=== PATIENT | male | born 1960 | race African-American/Black ===

== ENCOUNTER 2019-02-04 14:34 | Inpatient (IN) | payer OTHER ==
[~2019-02-04] VITALS: Ht 175.3 cm; Wt 122.0 kg
[~2019-02-04 14:34] MED LIST: LIDOCAINE HCL/PF 1% 2ML VIAL ONE
[2019-02-04] MEDS ORDERED: METHYLPREDNISOLONE SOD SUCC 125 MG/2 ML VIAL IV STA (16:11)
[2019-02-04] MEDS ORDERED: MAGNESIUM 2 G PREMIX 50 ML IV ONE (16:15)
[2019-02-04] MEDS ORDERED: LEVOFLOXACIN 750MG PREMIX 150 ML IV ONE (16:15)
[2019-02-04] MEDS ORDERED: IPRATROPIUM/ALBUTEROL 0.5-3(2.5)MG/3ML NEB HHN ONE (16:15)
[2019-02-04 16:30] LABS: BASOPHILS % 0.8 % (0.0-2.0); EOSINOPHILS % 1.3 % (0.0-5.0); HEMATOCRIT. 36.3 % (42.0-52.0); HEMOGLOBIN. 11.8 g/dL (14.0-18.0); MEAN CORPUSCULAR HEMOGLOBIN 29.1 pg (28.0-32.0); MEAN CORPUSCULAR VOLUME 89.2 fL (80.0-94.0); MEAN PLATELET VOLUME 7.2 fl (7.4-10.4); MONOCYTES % 10.5 % (2.0-8.0); NEUTROPHILS % 73.4 % (40.0-76.0); PLATELET 251 x1000/uL (130-400); RED BLOOD CELL COUNT 4.06 mill/uL (4.7-6.1); RED CELL DISTRIBUTION WIDTH 16.2 % (11.6-14.6)
[2019-02-04 16:36] LABS: CHLORIDE 100 mEq/L (98-107)
[2019-02-04 16:40] LABS: ETHANOL BLOOD < 10 mg/dL
[2019-02-04] MEDS ORDERED: FUROSEMIDE 40MG/4ML VIAL IVP ONE (16:45)
[2019-02-04] MEDS ORDERED: POTASSIUM CHLORIDE 20MEQ TABLET SR PO ONE (16:45)
[2019-02-04] MEDS ORDERED: ASPIRIN 81MG TABLET PO ONE (16:45)
[2019-02-04 16:46] LABS: CREATINE KINASE 204 IU/L (39-308)
[2019-02-04 16:48] LABS: CREATINE KINASE MB FRACTION 3.5 ng/mL (0.5-3.6)
[2019-02-04 16:52] LABS: BG BASE EXCESS 4.6 mmol/L (-2.0-2.0); BG CARBOXYHEMOGLOBIN 1.7 % (0.5-1.5); BG DEOXYHEMOGLOBIN 0.7 % (0.0-5.0); BG HCO3 ACT 32.3 mmol/L (22.0-26.0); BG METHEMOGLOBIN 0.3 % (0.0-1.5); BG OXYGEN SATURATION 99.3 % (92.0-98.5); BG OXYHEMOGLOBIN 97.3 % (94.0-97.0); BG PCO2 63.9 mmHg (35.0-45.0); BG PH 7.322 (7.350-7.450); BG SAMPLE SITE RIGHT RADIAL; BG TOTAL HEMOGLOBIN 12.4 g/dL (12.0-18.0)
[2019-02-04] MEDS ORDERED: ENOXAPARIN 100MG/ML SYR SUBCUT ONE (17:15)
[2019-02-04 17:46] LABS: CLARITY URINE CLEAR (CLEAR); COLOR URINE YELLOW (YELLOW); KETONES URINE NEGATIVE (NEGATIVE); LEUKOCYTE ESTERASE URINE NEGATIVE (NEGATIVE); NITRITE URINE NEGATIVE (NEGATIVE); OCCULT BLOOD URINE NEGATIVE (NEGATIVE); PH URINE 7.5 (4.5-8.0); PROTEIN URINE NEGATIVE (NEGATIVE); SPECIFIC GRAVITY URINE 1.004 (1.005-1.030); UROBILINOGEN URINE 0.2 E.U./dL (0.2-1.0)
[2019-02-04 18:18] LABS: INR 1.1; PARTIAL THROMBOPLASTIN TIME 29.5 sec (23.4-31.0); PROTHROMBIN TIME 10.8 sec (9.6-11.0)
[2019-02-04 18:30] LABS: *AMPHETAMINES SCREEN URINE NEGATIVE (NEGATIVE); *BARBITURATES SCREEN URINE NEGATIVE (NEGATIVE); *BENZODIAZEPINES SCREEN URINE NEGATIVE (NEGATIVE); *COCAINE SCREEN URINE NEGATIVE (NEGATIVE); METHADONE URINE SCREEN NEGATIVE (NEGATIVE); OPIATES URINE SCREEN NEGATIVE (NEGATIVE)
[2019-02-04 18:31] LABS: CANNABINOID URINE SCREEN NEGATIVE (NEGATIVE); PHENCYCLIDINE URINE SCREEN PRESUMTIVE POSITIVE (NEGATIVE)
[2019-02-04] MEDS ORDERED: IPRATROPIUM/ALBUTEROL 0.5-3(2.5)MG/3ML NEB NEB PRN (19:45)
[2019-02-04] MEDS ORDERED: HYDROCODONE/ACETAMINOPHEN 5/325MG TABLET PO PRN (19:45)
[2019-02-04] MEDS ORDERED: MORPHINE SULFATE 2 MG/ML CPJ (NOT FOR IM USE) IV PRN (19:45)
[2019-02-04] MEDS ORDERED: ENOXAPARIN 40MG/0.4ML SYR SUBCUT SCH (19:45)
[2019-02-04] MEDS ORDERED: ONDANSETRON HCL 4MG/2ML INJ IV PRN (19:45)
[2019-02-04] MEDS ORDERED: ACETAMINOPHEN 325MG TABLET PO PRN (19:45)
[2019-02-04] MEDS ORDERED: DIPHENHYDRAMINE 50MG/ML VIAL IV PRN (19:45)
[2019-02-04] MEDS ORDERED: NA PHOS,M-B/NA PHOS,DI-BA ENEMA 118ML PR PRN (19:45)
[2019-02-04] MEDS ORDERED: MAGNESIUM/ALUMINUM HYDROXIDE/SIMETHICONE 30ML UDC PO PRN (19:45)
[2019-02-04] MEDS ORDERED: GUAIFENESIN 200MG/10ML SUGAR FREE UDC PO PRN (19:45)
[2019-02-04] MEDS ORDERED: LORAZEPAM 2MG/ML CPJ IV PRN (19:45)
[2019-02-04] MEDS ORDERED: DOCUSATE SODIUM 100MG CAPSULE PO PRN (19:45)
[2019-02-04] MEDS: CLONIDINE 0.1MG TABLET PO PRN (20:31)
[2019-02-04] MEDS ORDERED: DEXTROSE 50% WATER 50ML SYRINGE IV PRN (23:30)
[2019-02-05] VITALS (11 sets, daily range): BP systolic 135–163; BP diastolic 84–110
[2019-02-05] MEDS: METHYLPREDNISOLONE SOD SUCC 125 MG/2 ML VIAL IV SCH ×3 (01:23→12:34)
[2019-02-05 06:24] LABS: HEMATOCRIT. 36.5 % (42.0-52.0); HEMOGLOBIN. 12.1 g/dL (14.0-18.0); MEAN CORPUSCULAR HEMOGLOBIN 29.2 pg (28.0-32.0); MEAN CORPUSCULAR VOLUME 88.3 fL (80.0-94.0); MEAN PLATELET VOLUME 7.1 fl (7.4-10.4); PLATELET 269 x1000/uL (130-400); RED BLOOD CELL COUNT 4.14 mill/uL (4.7-6.1); RED CELL DISTRIBUTION WIDTH 15.8 % (11.6-14.6)
[2019-02-05 06:25] LABS: CHLORIDE 105 mEq/L (98-107)
[2019-02-05 06:35] LABS: LDL CHOLESTEROL 82 mg/dL (5-100)
[2019-02-05 06:36] LABS: HDL CHOLESTEROL 46 mg/dL (40-59)
[2019-02-05] MEDS: BLOOD SUGAR DIAGNOSTIC STRIP TEST SCH ×5 (07:31→22:05)
[2019-02-05] MEDS: CLONIDINE 0.1MG TABLET PO PRN (08:48)
[2019-02-05] MEDS: ASPIRIN 81MG EC TABLET PO SCH (08:48)
[2019-02-05] MEDS: ENOXAPARIN 30MG/0.3ML SYR SUBCUT SCH ×2 (08:49→21:04)
[2019-02-05] MEDS: FUROSEMIDE 40MG/4ML VIAL IV SCH ×2 (08:49→21:06)
[2019-02-05] MEDS: INSULIN LISPRO 100 UNITS/ML SUBCUT SCH ×4 (08:50→22:05)
[2019-02-05 09:46] LABS: T4 FREE 0.91 ng/dL (0.76-1.46)
[2019-02-05 10:30] LABS: BG BASE EXCESS 6.5 mmol/L (-2.0-2.0); BG CARBOXYHEMOGLOBIN 1.3 % (0.5-1.5); BG DEOXYHEMOGLOBIN 10.4 % (0.0-5.0); BG FRACTION INSPIRED OXYGEN 32; BG HCO3 ACT 35.2 mmol/L (22.0-26.0); BG METHEMOGLOBIN 0.3 % (0.0-1.5); BG OXYGEN SATURATION 89.4 % (92.0-98.5); BG PCO2 70.9 mmHg (35.0-45.0); BG PH 7.314 (7.350-7.450); BG PO2 60.8 mmHg (75.0-100.0); BG SAMPLE SITE RIGHT RADIAL; BG TOTAL HEMOGLOBIN 13.6 g/dL (12.0-18.0); BG VENT MODE NASAL CANNULA
[2019-02-05] MEDS: LOSARTAN POTASSIUM 50 MG TABLET PO SCH (12:34)
[2019-02-05] MEDS: IPRATROPIUM/ALBUTEROL 0.5-3(2.5)MG/3ML NEB HHN SCH ×2 (14:35→21:28)
[2019-02-05 15:47] LABS: CREATINE KINASE MB FRACTION 2.2 ng/mL (0.5-3.6)
[2019-02-05] MEDS ORDERED: LEVOFLOXACIN 500MG PREMIX 100 ML IV SCH (17:00)
[2019-02-05] MEDS: METHYLPREDNISOLONE SOD SUCC 40 MG/ML VIAL IV SCH (17:13)
[2019-02-05 17:21] LABS: PLATELET ESTIMATE NORMAL
[2019-02-05] MEDS: CARVEDILOL 3.125 MG TABLET PO SCH (21:05)
[2019-02-06] VITALS: BP 152/94
[2019-02-06 01:09] LABS: CREATINE KINASE MB FRACTION 1.9 ng/mL (0.5-3.6)
[2019-02-06] MEDS: IPRATROPIUM/ALBUTEROL 0.5-3(2.5)MG/3ML NEB HHN SCH ×2 (03:00→08:52)
[2019-02-06 04:00] VITALS: BP 147/112
[2019-02-06 06:00] VITALS: BP 146/117
[2019-02-06 06:24] LABS: CREATINE KINASE MB FRACTION 2.6 ng/mL (0.5-3.6)
[2019-02-06] MEDS: ASPIRIN 81MG EC TABLET PO SCH (09:08)
[2019-02-06] MEDS: LOSARTAN POTASSIUM 50 MG TABLET PO SCH (09:08)
[2019-02-06] MEDS: METHYLPREDNISOLONE SOD SUCC 40 MG/ML VIAL IV SCH (09:08)
[2019-02-06] MEDS: ENOXAPARIN 30MG/0.3ML SYR SUBCUT SCH (09:08)
[2019-02-06] MEDS: FUROSEMIDE 40MG/4ML VIAL IV SCH (09:08)
[2019-02-06] MEDS: CARVEDILOL 3.125 MG TABLET PO SCH (09:08)
[2019-02-06] MEDS: INSULIN LISPRO 100 UNITS/ML SUBCUT SCH ×2 (09:09→12:43)
[2019-02-06 10:00] VITALS: BP 141/89
[2019-02-06 12:00] VITALS: BP 134/97
[2019-02-07] MEDS ORDERED: PREDNISONE 20MG TABLET PO SCH (09:00)
== END 2019-02-06 14:30 | disposition left against medical advice (07) | DRG 190 ==
LOC: ER 14:34 → 3WST 17:02 → EDBEDREQ 17:06 → EDBEDREQSVC 17:06 → EDBEDREQTM 17:06 → ENRESERV 21:05
PROVIDERS: ADMIT Internal Medicine; ATTEND Internal Medicine
PROC: 5A09357 Assistance with Respiratory Ventilation, Less than 24 Consecutive Hours, Continuous Positive Airway Pressure (ICD-10-PCS; principal; 2019-02-04)
PROC: 5A09357 Assistance with Respiratory Ventilation, Less than 24 Consecutive Hours, Continuous Positive Airway Pressure (ICD-10-PCS; 2019-02-05)
PROC: 5A09357 Assistance with Respiratory Ventilation, Less than 24 Consecutive Hours, Continuous Positive Airway Pressure (ICD-10-PCS; 2019-02-06)
DX: I21.4 Non-ST elevation (NSTEMI) myocardial infarction (principal); J96.02 Acute respiratory failure with hypercapnia; J69.0 Pneumonitis due to inhalation of food and vomit; I50.21 Acute systolic (congestive) heart failure; G92 Toxic encephalopathy; E87.2 Acidosis; I27.20 Pulmonary hypertension, unspecified; E66.9 Obesity, unspecified; E11.9 Type 2 diabetes mellitus without complications; E87.6 Hypokalemia; F17.210 Nicotine dependence, cigarettes, uncomplicated; I11.0 Hypertensive heart disease with heart failure; E78.5 Hyperlipidemia, unspecified; I25.10 Atherosclerotic heart disease of native coronary artery without angina pectoris; J44.9 Chronic obstructive pulmonary disease, unspecified; Z71.6 Tobacco abuse counseling; Z68.39 Body mass index [BMI] 39.0-39.9, adult; Z79.84 Long term (current) use of oral hypoglycemic drugs
CPT/HCPCS: 36415; 36600; 71045; 80061; 80305; 80320; 81003; 82375; 82550; 82553; 82805; 82962; 83036; 83605; 83880; 84439; 84443; 84484; 85379; 93005; 93306; 93970; 94640; 94660; 99285; J1200; J1650; J1815; J1940; J1956; J2920; J2930; J3475; J3490; J7620; G0480

== ENCOUNTER 2019-03-22 08:44 | Emergency (ER) | payer OTHER ==
[~2019-03-22] VITALS: Ht 175.3 cm; Wt 121.6 kg
[2019-03-22] MEDS ORDERED: VANCOMYCIN 1 G PREMIX 200 ML IV ONE (10:15)
[2019-03-22] MEDS ORDERED: MORPHINE SULFATE 4 MG/ML CPJ (NOT FOR IM USE) IV STA (10:15)
[2019-03-22] MEDS ORDERED: FUROSEMIDE 40MG/4ML VIAL IVP ONE (10:15)
[2019-03-22] MEDS ORDERED: PIPERACILLIN/TAZ 3.375G PREMIX 50 ML IV ONE (10:15)
[2019-03-22] MEDS ORDERED: ONDANSETRON HCL 4MG/2ML INJ IV STA (10:15)
[2019-03-22 10:47] LABS: BASOPHILS % 0.9 % (0.0-2.0); EOSINOPHILS % 0.4 % (0.0-5.0); HEMATOCRIT. 38.1 % (42.0-52.0); HEMOGLOBIN. 12.3 g/dL (14.0-18.0); LYMPHOCYTES % 12.8 % (20.0-50.0); MEAN CORPUSCULAR HEMOGLOBIN 28.3 pg (28.0-32.0); MEAN CORPUSCULAR VOLUME 87.7 fL (80.0-94.0); MEAN PLATELET VOLUME 8.2 fl (7.4-10.4); MONOCYTES % 7.8 % (2.0-8.0); NEUTROPHILS % 78.1 % (40.0-76.0); PLATELET 229 x1000/uL (130-400); RED BLOOD CELL COUNT 4.35 mill/uL (4.7-6.1); RED CELL DISTRIBUTION WIDTH 15.9 % (11.6-14.6)
[2019-03-22 10:53] LABS: CHLORIDE 103 mEq/L (98-107)
[2019-03-22 10:54] LABS: INR 1.1; PROTHROMBIN TIME 11.4 sec (9.6-11.0)
[2019-03-22 10:58] LABS: ETHANOL BLOOD < 10 mg/dL
[2019-03-22 11:02] LABS: CREATINE KINASE 162 IU/L (39-308)
[2019-03-22 11:15] LABS: CLARITY URINE CLEAR (CLEAR); COLOR URINE DARK YELLOW (YELLOW); KETONES URINE TRACE (NEGATIVE); LEUKOCYTE ESTERASE URINE NEGATIVE (NEGATIVE); NITRITE URINE NEGATIVE (NEGATIVE); OCCULT BLOOD URINE NEGATIVE (NEGATIVE); PROTEIN URINE 1+ (NEGATIVE); SPECIFIC GRAVITY URINE 1.025 (1.005-1.030)
[2019-03-22 11:37] LABS: METHADONE URINE SCREEN NEGATIVE (NEGATIVE); OPIATES URINE SCREEN NEGATIVE (NEGATIVE)
[2019-03-22 11:39] LABS: *AMPHETAMINES SCREEN URINE NEGATIVE (NEGATIVE); *BARBITURATES SCREEN URINE NEGATIVE (NEGATIVE); *BENZODIAZEPINES SCREEN URINE NEGATIVE (NEGATIVE); *COCAINE SCREEN URINE NEGATIVE (NEGATIVE); CANNABINOID URINE SCREEN NEGATIVE (NEGATIVE); PHENCYCLIDINE URINE SCREEN PRESUMTIVE POSITIVE (NEGATIVE)
[2019-03-22 15:10] VITALS: BP 160/120
== END 2019-03-22 15:30 | disposition short-term general hospital (02) ==
LOC: ER 08:44
DX: L03.115 Cellulitis of right lower limb (principal); R60.0 Localized edema; I11.0 Hypertensive heart disease with heart failure; I50.9 Heart failure, unspecified; R94.39 Abnormal result of other cardiovascular function study; E11.9 Type 2 diabetes mellitus without complications; J45.909 Unspecified asthma, uncomplicated; F16.10 Hallucinogen abuse, uncomplicated
CPT/HCPCS: 36415; 71045; 80053; 80305; 80320; 81003; 82550; 82553; 82962; 83605; 84145; 84443; 84484; 85025; 85610; 87040; 87086; 93005; 93970; 96365; 96366; 96367; 96375; 99285; J1940; J2270; J2405; J2543; J3370; Z7610; G0480

== ENCOUNTER 2019-08-08 14:06 | Inpatient (IN) | payer MEDICAID, OTHER ==
[~2019-08-08] VITALS: Ht 175.3 cm; Wt 120.2 kg
[2019-08-08] MEDS ORDERED: MORPHINE SULFATE 4 MG/ML CPJ (NOT FOR IM USE) IV STA (14:23)
[2019-08-08] MEDS ORDERED: ONDANSETRON HCL 4MG/2ML INJ IV STA (14:23)
[2019-08-08] MEDS ORDERED: FUROSEMIDE 40MG/4ML VIAL IV ONE (14:30)
[2019-08-08 15:14] LABS: BASOPHILS % 0.8 % (0.0-2.0); EOSINOPHILS % 1.5 % (0.0-5.0); HEMATOCRIT. 36.5 % (42.0-52.0); HEMOGLOBIN. 11.8 g/dL (14.0-18.0); LYMPHOCYTES % 16.1 % (20.0-50.0); MEAN CORPUSCULAR HEMOGLOBIN 27.1 pg (28.0-32.0); MEAN CORPUSCULAR VOLUME 83.7 fL (80.0-94.0); MEAN PLATELET VOLUME 7.2 fl (7.4-10.4); MONOCYTES % 11.1 % (2.0-8.0); NEUTROPHILS % 70.5 % (40.0-76.0); PLATELET 270 x1000/uL (130-400); RED BLOOD CELL COUNT 4.37 mill/uL (4.7-6.1); RED CELL DISTRIBUTION WIDTH 17.2 % (11.6-14.6)
[2019-08-08 15:17] LABS: CHLORIDE 102 mEq/L (98-107)
[2019-08-08 15:19] LABS: INR 1.2; PARTIAL THROMBOPLASTIN TIME 29.3 sec (23.4-31.0); PROTHROMBIN TIME 12.7 sec (9.6-11.0)
[2019-08-08 15:21] LABS: ETHANOL BLOOD < 10 mg/dL
[2019-08-08 17:34] LABS: CLARITY URINE CLEAR (CLEAR); COLOR URINE YELLOW (YELLOW); KETONES URINE NEGATIVE (NEGATIVE); LEUKOCYTE ESTERASE URINE NEGATIVE (NEGATIVE); NITRITE URINE NEGATIVE (NEGATIVE); OCCULT BLOOD URINE NEGATIVE (NEGATIVE); PROTEIN URINE NEGATIVE (NEGATIVE); SPECIFIC GRAVITY URINE 1.013 (1.005-1.030)
[2019-08-08 17:44] LABS: *AMPHETAMINES SCREEN URINE NEGATIVE (NEGATIVE); *BARBITURATES SCREEN URINE NEGATIVE (NEGATIVE); *BENZODIAZEPINES SCREEN URINE NEGATIVE (NEGATIVE); *COCAINE SCREEN URINE NEGATIVE (NEGATIVE); METHADONE URINE SCREEN NEGATIVE (NEGATIVE)
[2019-08-08 17:45] LABS: CANNABINOID URINE SCREEN NEGATIVE (NEGATIVE); OPIATES URINE SCREEN PRESUMTIVE POSITIVE (NEGATIVE); PHENCYCLIDINE URINE SCREEN PRESUMTIVE POSITIVE (NEGATIVE)
[2019-08-08] MEDS ORDERED: DEXTROSE 50% WATER 50ML SYRINGE IV PRN (20:45)
[2019-08-08] MEDS ORDERED: ONDANSETRON HCL 4MG/2ML INJ IV PRN (20:45)
[2019-08-08] MEDS ORDERED: HYDROCODONE/ACETAMINOPHEN 10/325MG TABLET PO PRN (20:45)
[2019-08-08] MEDS ORDERED: GUAIFENESIN 200MG/10ML SUGAR FREE UDC PO PRN (20:45)
[2019-08-08] MEDS ORDERED: LORAZEPAM 2MG/ML CPJ IV PRN (20:45)
[2019-08-08] MEDS ORDERED: DIPHENHYDRAMINE 50MG/ML VIAL IV PRN (20:45)
[2019-08-08] MEDS ORDERED: MAGNESIUM/ALUMINUM HYDROXIDE/SIMETHICONE 30ML UDC PO PRN (20:45)
[2019-08-08] MEDS ORDERED: IPRATROPIUM/ALBUTEROL 0.5-3(2.5)MG/3ML NEB NEB PRN (20:45)
[2019-08-08] MEDS ORDERED: ACETAMINOPHEN 325MG TABLET PO PRN (20:45)
[2019-08-08] MEDS ORDERED: NA PHOS,M-B/NA PHOS,DI-BA ENEMA 118ML PR PRN (20:45)
[2019-08-08] MEDS ORDERED: MORPHINE SULFATE 2 MG/ML CPJ (NOT FOR IM USE) IV PRN (20:45)
[2019-08-08] MEDS ORDERED: DOCUSATE SODIUM 100MG CAPSULE PO PRN (20:45)
[2019-08-08] MEDS ORDERED: HYDRALAZINE 20MG/ML VIAL IV PRN (20:45)
[2019-08-08] MEDS ORDERED: ENOXAPARIN 40MG/0.4ML SYR SUBCUT SCH (20:45)
[2019-08-08] MEDS: INSULIN LISPRO 100 UNITS/ML SUBCUT SCH (21:00)
[2019-08-08] MEDS: BLOOD SUGAR DIAGNOSTIC STRIP TEST SCH (21:00)
[2019-08-08 22:26] VITALS: BP 138/100
[2019-08-09] VITALS: BP 134/101
[2019-08-09 01:33] LABS: CREATINE KINASE MB FRACTION 2.9 ng/mL (0.5-3.6)
[2019-08-09 04:00] VITALS: BP 119/80
[2019-08-09] MEDS: SODIUM CHLORIDE 0.9% INJ 3ML FLUSH IVF SCH ×3 (06:05→20:56)
[2019-08-09 06:46] LABS: CHLORIDE 103 mEq/L (98-107)
[2019-08-09 07:00] LABS: EOSINOPHILS % 0.7 % (0.0-5.0); HEMATOCRIT. 33.8 % (42.0-52.0); HEMOGLOBIN. 11.1 g/dL (14.0-18.0); LYMPHOCYTES % 14.7 % (20.0-50.0); MEAN CORPUSCULAR HEMOGLOBIN 27.6 pg (28.0-32.0); MEAN PLATELET VOLUME 7.1 fl (7.4-10.4); MONOCYTES % 13.2 % (2.0-8.0); NEUTROPHILS % 70.4 % (40.0-76.0); PLATELET 250 x1000/uL (130-400); RED BLOOD CELL COUNT 4.03 mill/uL (4.7-6.1)
[2019-08-09 07:09] LABS: CREATINE KINASE 105 IU/L (39-308); HDL CHOLESTEROL 38 mg/dL (40-59); LDL CHOLESTEROL 51 mg/dL (5-100)
[2019-08-09 07:14] LABS: CREATINE KINASE MB FRACTION 3.1 ng/mL (0.5-3.6)
[2019-08-09] MEDS: BLOOD SUGAR DIAGNOSTIC STRIP TEST SCH ×4 (07:58→20:55)
[2019-08-09] MEDS: INSULIN LISPRO 100 UNITS/ML SUBCUT SCH ×4 (07:58→20:55)
[2019-08-09 08:00] VITALS: BP 129/85
[2019-08-09] MEDS: ENOXAPARIN 30MG/0.3ML SYR SUBCUT SCH ×2 (08:37→20:55)
[2019-08-09] MEDS: FUROSEMIDE 40MG/4ML VIAL IVP SCH (08:38)
[2019-08-09 12:00] VITALS: BP 130/79
[2019-08-09] MEDS ORDERED: FUROSEMIDE 40MG/4ML VIAL IVP NR (14:20)
[2019-08-09 15:45] LABS: T4 FREE 0.9 ng/dL (0.76-1.46)
[2019-08-09 15:47] LABS: CREATINE KINASE MB FRACTION 2.5 ng/mL (0.5-3.6)
[2019-08-09 16:00] VITALS: BP 135/90
[2019-08-09 20:13] VITALS: BP 109/67
[2019-08-10 00:10] LABS: CREATINE KINASE MB FRACTION 2.2 ng/mL (0.5-3.6)
[2019-08-10 00:36] VITALS: BP 123/85
[2019-08-10 04:00] VITALS: BP 119/88
[2019-08-10] MEDS: SODIUM CHLORIDE 0.9% INJ 3ML FLUSH IVF SCH ×3 (06:04→22:11)
[2019-08-10 06:09] LABS: BASOPHILS % 0.9 % (0.0-2.0); EOSINOPHILS % 0.5 % (0.0-5.0); HEMATOCRIT. 34.8 % (42.0-52.0); HEMOGLOBIN. 11.1 g/dL (14.0-18.0); LYMPHOCYTES % 12.2 % (20.0-50.0); MEAN CORPUSCULAR HEMOGLOBIN 27.4 pg (28.0-32.0); MEAN CORPUSCULAR VOLUME 85.8 fL (80.0-94.0); MEAN PLATELET VOLUME 7.1 fl (7.4-10.4); MONOCYTES % 11.4 % (2.0-8.0); PLATELET 240 x1000/uL (130-400); RED BLOOD CELL COUNT 4.05 mill/uL (4.7-6.1)
[2019-08-10 06:24] LABS: CHLORIDE 105 mEq/L (98-107)
[2019-08-10 06:42] LABS: CREATINE KINASE 79 IU/L (39-308)
[2019-08-10 06:43] LABS: CREATINE KINASE MB FRACTION 2.2 ng/mL (0.5-3.6)
[2019-08-10] MEDS: BLOOD SUGAR DIAGNOSTIC STRIP TEST SCH ×4 (07:40→21:00)
[2019-08-10 08:00] VITALS: BP 132/90
[2019-08-10] MEDS: INSULIN LISPRO 100 UNITS/ML SUBCUT SCH ×4 (08:10→21:00)
[2019-08-10] MEDS: FUROSEMIDE 40MG/4ML VIAL IVP SCH (09:40)
[2019-08-10] MEDS: ENOXAPARIN 30MG/0.3ML SYR SUBCUT SCH ×2 (09:41→22:09)
[2019-08-10] MEDS: LEVOFLOXACIN 500MG TABLET PO SCH (10:09)
[2019-08-10] MEDS ORDERED: IOHEXOL-350 100 ML BOTTLE ONE (10:44)
[2019-08-10 12:00] VITALS: BP 140/96
[2019-08-10] MEDS ORDERED: FUROSEMIDE 40MG/4ML VIAL IVP SCH (14:15)
[2019-08-10 16:00] VITALS: BP 150/98
[2019-08-10 20:00] VITALS: BP 151/71
[2019-08-10] MEDS: GUAIFENESIN 600MG ER TABLET PO SCH (22:09)
[2019-08-11] VITALS: BP 146/75
[2019-08-11 04:00] VITALS: BP 146/103
[2019-08-11] MEDS: SODIUM CHLORIDE 0.9% INJ 3ML FLUSH IVF SCH ×2 (06:29→17:43)
[2019-08-11] MEDS: INSULIN LISPRO 100 UNITS/ML SUBCUT SCH ×4 (08:10→21:00)
[2019-08-11] MEDS: BLOOD SUGAR DIAGNOSTIC STRIP TEST SCH ×4 (08:16→21:20)
[2019-08-11] MEDS: IPRATROPIUM/ALBUTEROL 0.5-3(2.5)MG/3ML NEB HHN SCH ×2 (09:00→12:00)
[2019-08-11] MEDS: ENOXAPARIN 30MG/0.3ML SYR SUBCUT SCH ×2 (09:12→20:55)
[2019-08-11] MEDS: GUAIFENESIN 600MG ER TABLET PO SCH ×2 (09:12→20:55)
[2019-08-11] MEDS: FUROSEMIDE 40MG/4ML VIAL IVP SCH (09:12)
[2019-08-11] MEDS: LEVOFLOXACIN 500MG TABLET PO SCH (11:16)
[2019-08-11 16:00] VITALS: BP 179/100
[2019-08-11 20:00] VITALS: BP 162/112
[2019-08-11] MEDS: CLONIDINE 0.1MG TABLET PO PRN (20:55)
[2019-08-12] VITALS: BP 150/104
[2019-08-12 04:00] VITALS: BP 159/104
[2019-08-12] MEDS: BLOOD SUGAR DIAGNOSTIC STRIP TEST SCH (05:54)
[2019-08-12] MEDS: INSULIN LISPRO 100 UNITS/ML SUBCUT SCH (07:46)
[2019-08-12 08:00] VITALS: BP 154/100
[2019-08-12] MEDS: CLONIDINE 0.1MG TABLET PO PRN (08:54)
[2019-08-12] MEDS: GUAIFENESIN 600MG ER TABLET PO SCH (08:54)
[2019-08-12] MEDS: FUROSEMIDE 40MG/4ML VIAL IVP SCH (08:54)
[2019-08-12] MEDS: ENOXAPARIN 30MG/0.3ML SYR SUBCUT SCH (08:55)
[2019-08-12 11:00] VITALS: BP 140/98
[2019-08-12 11:16] VITALS: BP 140/98
[2019-08-12 12:00] VITALS: BP 140/100
[2019-09-04] MEDS ORDERED: FURO40TA5 MT (12:16)
[2019-09-04] MEDS ORDERED: COR3 PO (12:16)
[2019-09-04] MEDS ORDERED: LOSA50TA3 PO (12:16)
[2019-09-04] MEDS ORDERED: METF500T PO (12:16)
[2019-09-04] MEDS ORDERED: POTA20TA82 PO (12:16)
[2019-09-04] MEDS ORDERED: HYDR-4134 PO (12:16)
[2019-09-04] MEDS ORDERED: AMLO5TAB88 PO (12:16)
[2019-09-04] MEDS ORDERED: FERR325T6 MT (12:55)
== END 2019-08-12 13:40 | disposition home or self-care (01) | DRG 139 ==
LOC: ER 14:06 → EDBEDREQTM 16:37 → EDBEDREQ 16:37 → 7WST 18:38 → EDBEDREQTM 18:42 → EDBEDREQ 18:42 → ENRESERV 20:02
PROVIDERS: ADMIT Internal Medicine; ATTEND Internal Medicine
DX: J18.9 Pneumonia, unspecified organism (principal); J96.20 Acute and chronic respiratory failure, unspecified whether with hypoxia or hypercapnia; I50.23 Acute on chronic systolic (congestive) heart failure; E46 Unspecified protein-calorie malnutrition; J91.8 Pleural effusion in other conditions classified elsewhere; I27.21 Secondary pulmonary arterial hypertension; D64.9 Anemia, unspecified; E11.9 Type 2 diabetes mellitus without complications; I11.0 Hypertensive heart disease with heart failure; R62.7 Adult failure to thrive; J98.11 Atelectasis; Z91.19 Patient's noncompliance with other medical treatment and regimen; Z87.891 Personal history of nicotine dependence; Z91.14 Patient's other noncompliance with medication regimen; Z68.39 Body mass index [BMI] 39.0-39.9, adult; Z79.899 Other long term (current) drug therapy
CPT/HCPCS: 36415; 71045; 71275; 80048; 80053; 80061; 80305; 80320; 81003; 82550; 82553; 82962; 83036; 83605; 83880; 84439; 84443; 84484; 85025; 85379; 93005; 93306; 93970; 96374; 99285; J0360; J1650; J1940; J2270; J2405; Q9967; G0480

== ENCOUNTER 2019-08-25 11:04 | Emergency (ER) | payer MEDICAID ==
[~2019-08-25] VITALS: Ht 175.3 cm; Wt 82.0 kg
[2019-08-25] MEDS ORDERED: POTASSIUM CHLORIDE 20MEQ TABLET SR PO ONE (11:45)
[2019-08-25] MEDS ORDERED: FUROSEMIDE 40MG TABLET PO ONE (11:45)
[2019-08-25 12:10] VITALS: BP 140/73
== END 2019-08-25 12:12 | disposition home or self-care (01) ==
LOC: ER 11:04
DX: I11.0 Hypertensive heart disease with heart failure (principal); I50.9 Heart failure, unspecified; E11.9 Type 2 diabetes mellitus without complications; F16.10 Hallucinogen abuse, uncomplicated
CPT/HCPCS: 99283

== ENCOUNTER 2019-10-12 10:27 | Inpatient (IN) | payer MEDICAID ==
[~2019-10-12] VITALS: Ht 177.8 cm; Wt 107.3 kg
[~2019-10-12 10:27] MED LIST changes: +AMLO5TAB88 PO; +COR3 PO; +FERR325T6 MT; +FURO40TA5 MT; +HYDR-4134 PO; -LIDOCAINE HCL/PF 1% 2ML VIAL ONE; +LOSA50TA3 PO; +METF500T PO; +POTA20TA82 PO
[2019-10-12] MEDS ORDERED: FUROSEMIDE 40MG/4ML VIAL IVP ONE (11:15)
[2019-10-12 11:28] LABS: CHLORIDE 107 mEq/L (98-107)
[2019-10-12 11:31] LABS: EOSINOPHILS % 0.8 % (0.0-5.0); HEMATOCRIT. 35.2 % (42.0-52.0); HEMOGLOBIN. 11.7 g/dL (14.0-18.0); LYMPHOCYTES % 14.4 % (20.0-50.0); MEAN CORPUSCULAR HEMOGLOBIN 27.6 pg (28.0-32.0); MEAN CORPUSCULAR VOLUME 83.2 fL (80.0-94.0); MEAN PLATELET VOLUME 7.8 fl (7.4-10.4); MONOCYTES % 10.6 % (2.0-8.0); NEUTROPHILS % 73.2 % (40.0-76.0); PLATELET 227 x1000/uL (130-400); RED BLOOD CELL COUNT 4.23 mill/uL (4.7-6.1); RED CELL DISTRIBUTION WIDTH 21.9 % (11.6-14.6)
[2019-10-12 11:32] LABS: ETHANOL BLOOD < 10 mg/dL
[2019-10-12 12:12] LABS: *COCAINE SCREEN URINE PRESUMTIVE POSITIVE (NEGATIVE); METHADONE URINE SCREEN NEGATIVE (NEGATIVE); OPIATES URINE SCREEN NEGATIVE (NEGATIVE); PHENCYCLIDINE URINE SCREEN PRESUMTIVE POSITIVE (NEGATIVE)
[2019-10-12 12:13] LABS: *AMPHETAMINES SCREEN URINE NEGATIVE (NEGATIVE); *BARBITURATES SCREEN URINE NEGATIVE (NEGATIVE); *BENZODIAZEPINES SCREEN URINE NEGATIVE (NEGATIVE); CANNABINOID URINE SCREEN NEGATIVE (NEGATIVE)
[2019-10-12] MEDS ORDERED: ASPIRIN 325MG EC TABLET PO ONE (12:30)
[2019-10-12] MEDS ORDERED: POTASSIUM CHLORIDE 20MEQ/PACKET PO ONE (14:00)
[2019-10-12] MEDS ORDERED: GUAIFENESIN 200MG/10ML SUGAR FREE UDC PO PRN (14:00)
[2019-10-12] MEDS ORDERED: KCL 20MEQ/100ML PREMIX 100 ML IV NR (14:00)
[2019-10-12] MEDS ORDERED: MAGNESIUM/ALUMINUM HYDROXIDE/SIMETHICONE 30ML UDC PO PRN (14:00)
[2019-10-12] MEDS ORDERED: KETOROLAC 15MG/ML VIAL IV PRN (14:00)
[2019-10-12] MEDS ORDERED: IPRATROPIUM/ALBUTEROL 0.5-3(2.5)MG/3ML NEB ORI PRN (14:00)
[2019-10-12] MEDS ORDERED: LORAZEPAM 0.5MG TABLET PO PRN (14:00)
[2019-10-12] MEDS ORDERED: ENOXAPARIN 40MG/0.4ML SYR SUBCUT SCH (14:00)
[2019-10-12] MEDS ORDERED: ACETAMINOPHEN 325MG TABLET PO PRN ×2 (14:00)
[2019-10-12] MEDS ORDERED: METOLAZONE 10MG TABLET PO NR (14:00)
[2019-10-12] MEDS ORDERED: ONDANSETRON HCL 4MG/2ML INJ IV PRN (14:00)
[2019-10-12] MEDS ORDERED: POTASSIUM CHLORIDE 20MEQ TABLET SR PO NR (14:00)
[2019-10-12] MEDS ORDERED: DEXTROSE 50% WATER 50ML SYRINGE IV PRN (14:15)
[2019-10-12 14:35] LABS: T4 FREE 0.95 ng/dL (0.76-1.46)
[2019-10-12 14:49] LABS: FOLIC ACID (FOLATE) SERUM 15.1 ng/mL (>5.38)
[2019-10-12] MEDS: ENOXAPARIN 30MG/0.3ML SYR SUBCUT SCH (16:33)
[2019-10-12] MEDS: BLOOD SUGAR DIAGNOSTIC STRIP TEST SCH ×2 (16:54→21:31)
[2019-10-12] MEDS: INSULIN LISPRO 100 UNITS/ML SUBCUT SCH ×2 (16:55→21:00)
[2019-10-12] MEDS: DILTIAZEM HCL 30MG TABLET PO SCH (17:01)
[2019-10-12] MEDS: CLONIDINE 0.1MG TABLET PO PRN (18:40)
[2019-10-12] MEDS: SPIRONOLACTONE 25MG TABLET PO SCH (21:00)
[2019-10-12] MEDS ORDERED: ZOLPIDEM TARTRATE 5MG TABLET PO PRN (21:00)
[2019-10-12] MEDS: ASCORBIC ACID 500 MG TABLET PO SCH (21:10)
[2019-10-12] MEDS: FUROSEMIDE 40MG/4ML VIAL IVP SCH (21:10)
[2019-10-12] MEDS: FAMOTIDINE 20MG TABLET PO SCH (21:10)
[2019-10-12 23:10] VITALS: BP 133/98
[2019-10-12 23:56] LABS: CREATINE KINASE MB FRACTION 2.5 ng/mL (0.5-3.6)
[2019-10-13] VITALS (12 sets, daily range): BP systolic 118–145; BP diastolic 86–106
[2019-10-13] MEDS: DILTIAZEM HCL 30MG TABLET PO SCH ×4 (00:03→17:06)
[2019-10-13] MEDS: CLONIDINE 0.1MG TABLET PO PRN ×2 (02:04→09:08)
[2019-10-13] MEDS: ENOXAPARIN 30MG/0.3ML SYR SUBCUT SCH ×2 (06:17→17:07)
[2019-10-13] MEDS: BLOOD SUGAR DIAGNOSTIC STRIP TEST SCH ×4 (07:06→21:11)
[2019-10-13] MEDS: INSULIN LISPRO 100 UNITS/ML SUBCUT SCH ×4 (07:20→21:10)
[2019-10-13 08:04] LABS: BASOPHILS % 0.8 % (0.0-2.0); EOSINOPHILS % 1.8 % (0.0-5.0); HEMATOCRIT. 35.5 % (42.0-52.0); HEMOGLOBIN. 11.6 g/dL (14.0-18.0); LYMPHOCYTES % 20.7 % (20.0-50.0); MEAN CORPUSCULAR HEMOGLOBIN 27.6 pg (28.0-32.0); MEAN PLATELET VOLUME 7.8 fl (7.4-10.4); MONOCYTES % 14.3 % (2.0-8.0); NEUTROPHILS % 62.4 % (40.0-76.0); PLATELET 221 x1000/uL (130-400); RED BLOOD CELL COUNT 4.22 mill/uL (4.7-6.1); RED CELL DISTRIBUTION WIDTH 22.2 % (11.6-14.6)
[2019-10-13 08:20] LABS: CHLORIDE 101 mEq/L (98-107)
[2019-10-13 08:26] LABS: PHOSPHORUS 5.1 mg/dL (2.5-4.9)
[2019-10-13] MEDS: ASPIRIN 325MG EC TABLET PO SCH (09:04)
[2019-10-13] MEDS: ZINC SULFATE 220 MG ( 50 ) CAPSULE PO SCH (09:04)
[2019-10-13] MEDS: FUROSEMIDE 40MG/4ML VIAL IVP SCH ×2 (09:05→21:11)
[2019-10-13] MEDS: SPIRONOLACTONE 25MG TABLET PO SCH ×2 (09:06→21:11)
[2019-10-13] MEDS: FAMOTIDINE 20MG TABLET PO SCH ×2 (09:37→21:11)
[2019-10-13] MEDS: ASCORBIC ACID 500 MG TABLET PO SCH ×2 (09:37→21:10)
[2019-10-13 13:23] LABS: PLATELET ESTIMATE NORMAL
[2019-10-14] VITALS (9 sets, daily range): BP systolic 114–140; BP diastolic 69–101
[2019-10-14] MEDS: ENOXAPARIN 30MG/0.3ML SYR SUBCUT SCH (05:53)
[2019-10-14] MEDS: DILTIAZEM HCL 30MG TABLET PO SCH ×2 (05:54)
[2019-10-14] MEDS: BLOOD SUGAR DIAGNOSTIC STRIP TEST SCH (06:45)
[2019-10-14] MEDS: INSULIN LISPRO 100 UNITS/ML SUBCUT SCH (07:20)
[2019-10-14] MEDS: ASPIRIN 325MG EC TABLET PO SCH (09:01)
[2019-10-14] MEDS: ZINC SULFATE 220 MG ( 50 ) CAPSULE PO SCH (09:01)
[2019-10-14] MEDS: FAMOTIDINE 20MG TABLET PO SCH (09:01)
[2019-10-14] MEDS: SPIRONOLACTONE 25MG TABLET PO SCH (09:01)
[2019-10-14] MEDS: FUROSEMIDE 40MG/4ML VIAL IVP SCH (09:01)
[2019-10-14] MEDS: ASCORBIC ACID 500 MG TABLET PO SCH (09:01)
== END 2019-10-14 13:59 | disposition home or self-care (01) | DRG 190 ==
LOC: ER 10:27 → 3WST 13:55 → EDBEDREQ 13:57 → ENRESERV 21:41
PROVIDERS: ADMIT Internal Medicine; ATTEND Internal Medicine
DX: I21.4 Non-ST elevation (NSTEMI) myocardial infarction (principal); J96.01 Acute respiratory failure with hypoxia; G92 Toxic encephalopathy; I50.43 Acute on chronic combined systolic (congestive) and diastolic (congestive) heart failure; E44.0 Moderate protein-calorie malnutrition; E83.51 Hypocalcemia; I42.9 Cardiomyopathy, unspecified; D63.8 Anemia in other chronic diseases classified elsewhere; E11.9 Type 2 diabetes mellitus without complications; I11.0 Hypertensive heart disease with heart failure; E87.6 Hypokalemia; F17.210 Nicotine dependence, cigarettes, uncomplicated; M79.89 Other specified soft tissue disorders; F14.10 Cocaine abuse, uncomplicated; F16.10 Hallucinogen abuse, uncomplicated; Z59.0 Homelessness; Z79.84 Long term (current) use of oral hypoglycemic drugs; Z79.899 Other long term (current) drug therapy; Z68.33 Body mass index [BMI] 33.0-33.9, adult
CPT/HCPCS: 36415; 71045; 80053; 80061; 80305; 80320; 82550; 82553; 82607; 82746; 82962; 83036; 83540; 83550; 83735; 83880; 84100; 84439; 84443; 84484; 85025; 93005; 93970; 96374; 97116; 97162; 97166; 99285; J1650; J1815; J1940; J3480; G0480

== ENCOUNTER 2019-11-02 13:20 | Emergency (ER) | payer MEDICAID ==
[~2019-11-02] VITALS: Ht 177.8 cm; Wt 80.0 kg
[2019-11-02] MEDS ORDERED: SULFAMETHOXAZOLE/TRIMETHOPRIM 800/160MG TABLET PO ONE (16:15)
[2019-11-02] MEDS ORDERED: CEPHALEXIN 250MG CAPSULE PO ONE (16:15)
[2019-11-02 17:02] VITALS: BP 146/96
== END 2019-11-02 17:03 | disposition home or self-care (01) ==
LOC: ER 13:20
DX: L03.115 Cellulitis of right lower limb (principal); E11.9 Type 2 diabetes mellitus without complications; I11.0 Hypertensive heart disease with heart failure; I50.9 Heart failure, unspecified; F14.10 Cocaine abuse, uncomplicated; F16.10 Hallucinogen abuse, uncomplicated; Z79.899 Other long term (current) drug therapy
CPT/HCPCS: 82962; 99283

== ENCOUNTER 2019-11-29 21:00 | Inpatient (IN) | payer MEDICAID ==
[~2019-11-29] VITALS: Ht 180.3 cm; Wt 70.8 kg
[2019-11-30 00:16] LABS: CLARITY URINE CLEAR (CLEAR); COLOR URINE DARK YELLOW (YELLOW); KETONES URINE TRACE (NEGATIVE); LEUKOCYTE ESTERASE URINE NEGATIVE (NEGATIVE); NITRITE URINE NEGATIVE (NEGATIVE); OCCULT BLOOD URINE NEGATIVE (NEGATIVE); PROTEIN URINE 1+ (NEGATIVE); SPECIFIC GRAVITY URINE 1.032 (1.005-1.030)
[2019-11-30 00:22] LABS: BASOPHILS % 1.5 % (0.0-2.0); EOSINOPHILS % 0.9 % (0.0-5.0); HEMATOCRIT. 37.1 % (42.0-52.0); HEMOGLOBIN. 12.3 g/dL (14.0-18.0); LYMPHOCYTES % 18.8 % (20.0-50.0); MEAN CORPUSCULAR HEMOGLOBIN 28.5 pg (28.0-32.0); MEAN CORPUSCULAR VOLUME 86.1 fL (80.0-94.0); MEAN PLATELET VOLUME 7.6 fl (7.4-10.4); MONOCYTES % 7.7 % (2.0-8.0); NEUTROPHILS % 71.1 % (40.0-76.0); PLATELET 232 x1000/uL (130-400); RED BLOOD CELL COUNT 4.31 mill/uL (4.7-6.1); RED CELL DISTRIBUTION WIDTH 21.3 % (11.6-14.6)
[2019-11-30 00:25] LABS: CHLORIDE 107 mEq/L (98-107)
[2019-11-30] MEDS ORDERED: IBUPROFEN 600MG TABLET PO ONE (00:30)
[2019-11-30 01:08] LABS: ETHANOL BLOOD < 10 mg/dL
[2019-11-30] MEDS ORDERED: ENOXAPARIN 100MG/ML SYR SUBCUT ONE (01:30)
[2019-11-30] MEDS ORDERED: NITROGLYCERIN 0.4MG TABLET SL SL PRN (01:30)
[2019-11-30] MEDS ORDERED: ASPIRIN 81MG TABLET PO ONE (01:30)
[2019-11-30] MEDS ORDERED: FUROSEMIDE 40MG/4ML VIAL IV ONE (01:30)
[2019-11-30 01:47] LABS: *AMPHETAMINES SCREEN URINE NEGATIVE (NEGATIVE); *BARBITURATES SCREEN URINE NEGATIVE (NEGATIVE); *BENZODIAZEPINES SCREEN URINE NEGATIVE (NEGATIVE); *COCAINE SCREEN URINE NEGATIVE (NEGATIVE); METHADONE URINE SCREEN NEGATIVE (NEGATIVE)
[2019-11-30 01:48] LABS: CANNABINOID URINE SCREEN NEGATIVE (NEGATIVE); OPIATES URINE SCREEN NEGATIVE (NEGATIVE); PHENCYCLIDINE URINE SCREEN PRESUMTIVE POSITIVE (NEGATIVE)
[2019-11-30] MEDS ORDERED: ACETAMINOPHEN 650MG SUPP PR PRN (09:15)
[2019-11-30] MEDS ORDERED: ACETAMINOPHEN 650MG/20.3ML UDC GT PRN ×2 (09:15)
[2019-11-30] MEDS ORDERED: DIPHENHYDRAMINE 50MG/ML VIAL IV PRN (09:15)
[2019-11-30] MEDS ORDERED: HYDROCODONE/ACETAMINOPHEN 5/325MG TABLET PO PRN (09:15)
[2019-11-30] MEDS ORDERED: DOCUSATE SODIUM 100MG CAPSULE PO PRN (09:15)
[2019-11-30] MEDS ORDERED: POTASSIUM CHLORIDE 20MEQ TABLET SR PO SCH (10:15)
[2019-11-30] MEDS: FUROSEMIDE 40MG/4ML VIAL IV SCH (10:21)
[2019-11-30] MEDS: CLONIDINE 0.1MG TABLET PO PRN ×2 (10:21→21:22)
[2019-11-30 11:54] LABS: T4 FREE 0.99 ng/dL (0.76-1.46)
[2019-11-30 13:00] VITALS: BP 134/85
[2019-11-30 16:00] VITALS: BP_SYST 134; BP_SYST 156; BP_DIAS 114; BP_DIAS 85
[2019-11-30] MEDS ORDERED: VANCOMYCIN 1500MG in DEXTROSE 5% WATER 250ML IV SCH (17:00)
[2019-11-30 17:04] LABS: CREATINE KINASE MB FRACTION 2.9 ng/mL (0.5-3.6)
[2019-11-30 20:00] VITALS: BP 152/113
[2019-11-30 23:52] LABS: CREATINE KINASE MB FRACTION 2.9 ng/mL (0.5-3.6)
[2019-12-01] VITALS: BP 158/118
[2019-12-01 04:00] VITALS: BP 150/111
[2019-12-01] MEDS ORDERED: VANCOMYCIN 1250MG in DEXTROSE 5% WATER 250ML IV SCH (06:00)
[2019-12-01 06:56] LABS: BASOPHILS % 0.7 % (0.0-2.0); EOSINOPHILS % 0.4 % (0.0-5.0); HEMATOCRIT. 36.2 % (42.0-52.0); HEMOGLOBIN. 11.9 g/dL (14.0-18.0); LYMPHOCYTES % 8.7 % (20.0-50.0); MEAN CORPUSCULAR HEMOGLOBIN 28.1 pg (28.0-32.0); MEAN CORPUSCULAR VOLUME 85.6 fL (80.0-94.0); MONOCYTES % 8.3 % (2.0-8.0); NEUTROPHILS % 81.9 % (40.0-76.0); PLATELET 221 x1000/uL (130-400); RED BLOOD CELL COUNT 4.23 mill/uL (4.7-6.1); RED CELL DISTRIBUTION WIDTH 21.1 % (11.6-14.6)
[2019-12-01 07:03] LABS: CHLORIDE 107 mEq/L (98-107)
[2019-12-01 07:11] LABS: LDL CHOLESTEROL 57 mg/dL (5-100)
[2019-12-01 07:13] LABS: HDL CHOLESTEROL 37 mg/dL (40-59)
[2019-12-01 08:00] VITALS: BP 158/122
[2019-12-01] MEDS ORDERED: ASPIRIN 81MG TABLET PO SCH (09:00)
[2019-12-01] MEDS ORDERED: ENOXAPARIN 40MG/0.4ML SYR SUBCUT SCH (09:00)
[2019-12-01] MEDS: FUROSEMIDE 40MG/4ML VIAL IV SCH (09:46)
[2019-12-01 16:16] LABS: CLARITY URINE CLEAR (CLEAR); COLOR URINE YELLOW (YELLOW); KETONES URINE NEGATIVE (NEGATIVE); LEUKOCYTE ESTERASE URINE NEGATIVE (NEGATIVE); NITRITE URINE NEGATIVE (NEGATIVE); OCCULT BLOOD URINE NEGATIVE (NEGATIVE); PROTEIN URINE NEGATIVE (NEGATIVE); SPECIFIC GRAVITY URINE 1.008 (1.005-1.030)
[2019-12-01 17:27] LABS: *BARBITURATES SCREEN URINE NEGATIVE (NEGATIVE)
[2019-12-01 17:28] LABS: *AMPHETAMINES SCREEN URINE NEGATIVE (NEGATIVE); *BENZODIAZEPINES SCREEN URINE NEGATIVE (NEGATIVE); *COCAINE SCREEN URINE NEGATIVE (NEGATIVE); CANNABINOID URINE SCREEN NEGATIVE (NEGATIVE); METHADONE URINE SCREEN NEGATIVE (NEGATIVE); OPIATES URINE SCREEN NEGATIVE (NEGATIVE); PHENCYCLIDINE URINE SCREEN PRESUMTIVE POSITIVE (NEGATIVE)
== END 2019-12-01 14:05 | disposition left against medical advice (07) | DRG 194 ==
LOC: ER 21:16 → 8WST 11-30 02:11 → ENRESERV 11-30 11:39
PROVIDERS: ADMIT Family Medicine; ATTEND Family Medicine
DX: I11.0 Hypertensive heart disease with heart failure (principal); E11.9 Type 2 diabetes mellitus without complications; D64.9 Anemia, unspecified; F19.90 Other psychoactive substance use, unspecified, uncomplicated; I50.9 Heart failure, unspecified; Z53.29 Procedure and treatment not carried out because of patient's decision for other reasons; Z79.84 Long term (current) use of oral hypoglycemic drugs; Z79.899 Other long term (current) drug therapy; Z91.19 Patient's noncompliance with other medical treatment and regimen; I25.2 Old myocardial infarction; Z59.0 Homelessness
CPT/HCPCS: 36415; 71045; 80053; 80061; 80305; 80320; 81003; 82550; 82553; 82962; 83036; 83880; 84439; 84443; 84484; 85025; 85379; 93005; 93306; 93970; 99285; J1650; J1940; J3370; J7060; G0480

== ENCOUNTER 2019-12-10 16:50 | Emergency (ER) | payer MEDICAID ==
[~2019-12-10] VITALS: Ht 170.2 cm; Wt 82.0 kg
[2019-12-10] MEDS ORDERED: DOXYCYCLINE HYCLATE 100MG CAPSULE PO ONE (21:15)
[2019-12-10 21:48] LABS: BASOPHILS % 0.9 % (0.0-2.0); EOSINOPHILS % 2.3 % (0.0-5.0); HEMATOCRIT. 33.5 % (42.0-52.0); HEMOGLOBIN. 11.1 g/dL (14.0-18.0); LYMPHOCYTES % 16.8 % (20.0-50.0); MEAN CORPUSCULAR HEMOGLOBIN 28.5 pg (28.0-32.0); MEAN CORPUSCULAR VOLUME 85.9 fL (80.0-94.0); MEAN PLATELET VOLUME 7.3 fl (7.4-10.4); MONOCYTES % 7.9 % (2.0-8.0); NEUTROPHILS % 72.1 % (40.0-76.0); PLATELET 212 x1000/uL (130-400); RED CELL DISTRIBUTION WIDTH 19.4 % (11.6-14.6)
[2019-12-10 21:55] LABS: CHLORIDE 106 mEq/L (98-107)
[2019-12-10] MEDS ORDERED: POTASSIUM CHLORIDE 20MEQ TABLET SR PO ONE (22:15)
[2019-12-11 10:59] VITALS: BP 132/78
== END 2019-12-11 11:01 | disposition home or self-care (01) ==
LOC: ER 16:50
DX: L03.115 Cellulitis of right lower limb (principal); E11.9 Type 2 diabetes mellitus without complications; I10 Essential (primary) hypertension
CPT/HCPCS: 36415; 71045; 80053; 83605; 85025; 87040; 93005; 99285; Z7610

== ENCOUNTER 2019-12-18 14:54 | Emergency (ER) | payer MEDICAID ==
[~2019-12-18] VITALS: Ht 172.7 cm; Wt 85.0 kg
[2019-12-18] MEDS ORDERED: ACETAMINOPHEN 325MG TABLET PO ONE (16:45)
[2019-12-18 17:32] LABS: BASOPHILS % 1.3 % (0.0-2.0); EOSINOPHILS % 1.7 % (0.0-5.0); HEMATOCRIT. 37.9 % (42.0-52.0); HEMOGLOBIN. 12.4 g/dL (14.0-18.0); LYMPHOCYTES % 22.4 % (20.0-50.0); MEAN CORPUSCULAR HEMOGLOBIN 28.3 pg (28.0-32.0); MEAN CORPUSCULAR VOLUME 86.5 fL (80.0-94.0); MEAN PLATELET VOLUME 7.5 fl (7.4-10.4); MONOCYTES % 10.5 % (2.0-8.0); NEUTROPHILS % 64.1 % (40.0-76.0); PLATELET 211 x1000/uL (130-400); RED BLOOD CELL COUNT 4.38 mill/uL (4.7-6.1)
[2019-12-18 17:38] LABS: CHLORIDE 105 mEq/L (98-107)
[2019-12-18] MEDS ORDERED: IBUPROFEN 400MG TABLET PO ONE (19:15)
[2019-12-18 21:00] VITALS: BP 158/99
== END 2019-12-18 22:24 | disposition home or self-care (01) ==
LOC: ER 14:54
DX: L03.116 Cellulitis of left lower limb (principal); L03.115 Cellulitis of right lower limb; I89.0 Lymphedema, not elsewhere classified; I11.0 Hypertensive heart disease with heart failure; I50.9 Heart failure, unspecified; E11.9 Type 2 diabetes mellitus without complications; F12.90 Cannabis use, unspecified, uncomplicated; Z72.0 Tobacco use; Z79.899 Other long term (current) drug therapy
CPT/HCPCS: 36415; 80053; 85025; 99285

== ENCOUNTER 2019-12-25 07:09 | Inpatient (IN) | payer MEDICAID ==
[~2019-12-25] VITALS: Ht 170.2 cm; Wt 111.1 kg
[2019-12-25 08:38] LABS: EOSINOPHILS % 3.9 % (0.0-5.0); HEMATOCRIT. 34.8 % (42.0-52.0); HEMOGLOBIN. 11.2 g/dL (14.0-18.0); LYMPHOCYTES % 16.8 % (20.0-50.0); MEAN CORPUSCULAR HEMOGLOBIN 28.4 pg (28.0-32.0); MEAN PLATELET VOLUME 7.2 fl (7.4-10.4); MONOCYTES % 10.9 % (2.0-8.0); NEUTROPHILS % 67.4 % (40.0-76.0); PLATELET 214 x1000/uL (130-400); RED BLOOD CELL COUNT 3.95 mill/uL (4.7-6.1); RED CELL DISTRIBUTION WIDTH 18.8 % (11.6-14.6)
[2019-12-25 08:44] LABS: CHLORIDE 109 mEq/L (98-107)
[2019-12-25] MEDS ORDERED: MORPHINE SULFATE 4 MG/ML CPJ (NOT FOR IM USE) IV ONE (09:30)
[2019-12-25] MEDS ORDERED: ASPIRIN 325MG EC TABLET PO ONE (09:30)
[2019-12-25] MEDS ORDERED: HYDRALAZINE 20MG/ML VIAL IV ONE (10:45)
[2019-12-25] MEDS ORDERED: FUROSEMIDE 40MG/4ML VIAL IVP ONE (10:45)
[2019-12-25] MEDS ORDERED: ENALAPRIL 2.5MG/2ML VIAL 2ML IV ONE (10:45)
[2019-12-25] MEDS ORDERED: ENALAPRIL 1.25MG/ML VIAL 1ML IV NR (11:00)
[2019-12-25] MEDS ORDERED: ONDANSETRON HCL 4MG/2ML INJ IV PRN (12:45)
[2019-12-25 13:01] VITALS: BP 139/116
[2019-12-25] MEDS: LOSARTAN POTASSIUM 100 MG TABLET PO SCH (13:30)
[2019-12-25] MEDS: ENOXAPARIN 30MG/0.3ML SYR SUBCUT SCH ×2 (13:31→20:38)
[2019-12-25] MEDS: KETOROLAC 30MG/ML VIAL IV PRN ×2 (13:31→20:38)
[2019-12-25 16:18] VITALS: BP 147/105
[2019-12-25 16:40] LABS: CLARITY URINE CLEAR (CLEAR); COLOR URINE YELLOW (YELLOW); KETONES URINE NEGATIVE (NEGATIVE); LEUKOCYTE ESTERASE URINE NEGATIVE (NEGATIVE); NITRITE URINE NEGATIVE (NEGATIVE); OCCULT BLOOD URINE NEGATIVE (NEGATIVE); PH URINE 7.5 (4.5-8.0); PROTEIN URINE NEGATIVE (NEGATIVE)
[2019-12-25 16:53] LABS: *BENZODIAZEPINES SCREEN URINE NEGATIVE (NEGATIVE); *COCAINE SCREEN URINE NEGATIVE (NEGATIVE); METHADONE URINE SCREEN NEGATIVE (NEGATIVE); OPIATES URINE SCREEN PRESUMTIVE POSITIVE (NEGATIVE); PHENCYCLIDINE URINE SCREEN PRESUMTIVE POSITIVE (NEGATIVE)
[2019-12-25 16:54] LABS: *AMPHETAMINES SCREEN URINE NEGATIVE (NEGATIVE); *BARBITURATES SCREEN URINE NEGATIVE (NEGATIVE); CANNABINOID URINE SCREEN NEGATIVE (NEGATIVE)
[2019-12-25] MEDS: FUROSEMIDE 40MG/4ML VIAL IVP SCH (17:22)
[2019-12-25 20:00] VITALS: BP 141/110
[2019-12-25] MEDS: CARVEDILOL 12.5MG TABLET PO SCH (20:38)
[2019-12-26 00:11] VITALS: BP 115/82
[2019-12-26 04:00] VITALS: BP 111/83
[2019-12-26] MEDS: TRAMADOL 50MG TABLET PO PRN ×2 (05:02→19:58)
[2019-12-26 08:00] VITALS: BP 105/79
[2019-12-26 08:45] LABS: CHLORIDE 102 mEq/L (98-107)
[2019-12-26 09:15] LABS: BASOPHILS % 0.6 % (0.0-2.0); EOSINOPHILS % 4.2 % (0.0-5.0); HEMATOCRIT. 34.2 % (42.0-52.0); HEMOGLOBIN. 11.2 g/dL (14.0-18.0); MEAN CORPUSCULAR HEMOGLOBIN 28.6 pg (28.0-32.0); MEAN CORPUSCULAR VOLUME 87.5 fL (80.0-94.0); MEAN PLATELET VOLUME 7.5 fl (7.4-10.4); MONOCYTES % 6.8 % (2.0-8.0); NEUTROPHILS % 69.4 % (40.0-76.0); PLATELET 217 x1000/uL (130-400); RED CELL DISTRIBUTION WIDTH 18.2 % (11.6-14.6)
[2019-12-26] MEDS: LOSARTAN POTASSIUM 100 MG TABLET PO SCH (09:55)
[2019-12-26] MEDS: ASPIRIN 81MG TABLET PO SCH (09:56)
[2019-12-26] MEDS: FUROSEMIDE 40MG/4ML VIAL IVP SCH ×2 (09:56→17:15)
[2019-12-26] MEDS: CARVEDILOL 12.5MG TABLET PO SCH ×2 (09:56→19:57)
[2019-12-26] MEDS: ENOXAPARIN 30MG/0.3ML SYR SUBCUT SCH ×2 (09:57→19:58)
[2019-12-26 12:00] VITALS: BP 106/78
[2019-12-26 16:00] VITALS: BP 110/80
[2019-12-26 20:00] VITALS: BP 126/98
[2019-12-27] VITALS: BP 101/70
[2019-12-27 04:30] VITALS: BP 99/73
[2019-12-27] MEDS: FUROSEMIDE 40MG/4ML VIAL IVP SCH ×2 (06:24→16:55)
[2019-12-27 08:00] VITALS: BP 117/88
[2019-12-27] MEDS: ENOXAPARIN 30MG/0.3ML SYR SUBCUT SCH ×2 (09:08→20:20)
[2019-12-27] MEDS: ASPIRIN 81MG TABLET PO SCH (09:09)
[2019-12-27] MEDS: CARVEDILOL 12.5MG TABLET PO SCH ×2 (09:10→20:20)
[2019-12-27] MEDS: TRAMADOL 50MG TABLET PO PRN ×2 (09:10→13:29)
[2019-12-27] MEDS: LOSARTAN POTASSIUM 100 MG TABLET PO SCH (09:10)
[2019-12-27 12:00] VITALS: BP 90/60
[2019-12-27 16:00] VITALS: BP 113/73
[2019-12-27 20:20] VITALS: BP 113/84
[2019-12-28 00:24] VITALS: BP 93/69
[2019-12-28 04:47] VITALS: BP 99/62
[2019-12-28] MEDS: FUROSEMIDE 40MG/4ML VIAL IVP SCH ×2 (06:24→16:34)
[2019-12-28 08:00] VITALS: BP 112/81
[2019-12-28] MEDS: LOSARTAN POTASSIUM 100 MG TABLET PO SCH (10:08)
[2019-12-28] MEDS: TRAMADOL 50MG TABLET PO PRN (10:08)
[2019-12-28] MEDS: CARVEDILOL 12.5MG TABLET PO SCH ×2 (10:08→20:58)
[2019-12-28] MEDS: ASPIRIN 81MG TABLET PO SCH (10:08)
[2019-12-28] MEDS: ENOXAPARIN 30MG/0.3ML SYR SUBCUT SCH ×2 (10:08→20:57)
[2019-12-28 16:00] VITALS: BP 116/63
[2019-12-28] MEDS ORDERED: CARV12.545 MT (17:59)
[2019-12-28] MEDS ORDERED: ASPI-1160 PO (17:59)
[2019-12-28] MEDS ORDERED: FERR325T6 MT (17:59)
[2019-12-28] MEDS ORDERED: METF500T PO (17:59)
[2019-12-28] MEDS ORDERED: LOSA50TA3 PO (17:59)
[2019-12-28] MEDS ORDERED: DOCU250C14 MT (17:59)
[2019-12-28] MEDS ORDERED: FURO40TA5 MT (17:59)
[2019-12-28] MEDS ORDERED: POTA20TA82 MT (17:59)
[2019-12-28 20:50] VITALS: BP 96/58
[2019-12-29 00:20] VITALS: BP 98/53
[2019-12-29 04:35] VITALS: BP 123/93
[2019-12-29 08:00] VITALS: BP 122/91
[2019-12-29 08:02] VITALS: BP 123/93
[2019-12-29] MEDS: ASPIRIN 81MG TABLET PO SCH (09:10)
[2019-12-29] MEDS: ENOXAPARIN 30MG/0.3ML SYR SUBCUT SCH (09:10)
[2019-12-29] MEDS: LOSARTAN POTASSIUM 100 MG TABLET PO SCH (09:10)
[2019-12-29] MEDS: CARVEDILOL 12.5MG TABLET PO SCH (09:10)
[2019-12-29] MEDS: FUROSEMIDE 40MG/4ML VIAL IVP SCH (09:10)
[2019-12-29 09:57] VITALS: BP 123/93
== END 2019-12-29 10:19 | disposition home or self-care (01) | DRG 194 ==
LOC: ER 07:30 → 6WST 10:45 → ENRESERV 11:33 → ER 12:06 → CANBEDREQ 12-27 14:53
PROVIDERS: ADMIT Internal Medicine Nephrology; ATTEND Internal Medicine Nephrology
DX: I11.0 Hypertensive heart disease with heart failure (principal); I50.23 Acute on chronic systolic (congestive) heart failure; E11.51 Type 2 diabetes mellitus with diabetic peripheral angiopathy without gangrene; I42.9 Cardiomyopathy, unspecified; D64.9 Anemia, unspecified; E66.9 Obesity, unspecified; E87.0 Hyperosmolality and hypernatremia; E87.8 Other disorders of electrolyte and fluid balance, not elsewhere classified; F17.210 Nicotine dependence, cigarettes, uncomplicated; I87.8 Other specified disorders of veins; F12.90 Cannabis use, unspecified, uncomplicated; L03.90 Cellulitis, unspecified; E78.5 Hyperlipidemia, unspecified; I45.10 Unspecified right bundle-branch block; Z71.3 Dietary counseling and surveillance; Z59.0 Homelessness; Z91.14 Patient's other noncompliance with medication regimen; Z71.6 Tobacco abuse counseling; Z68.38 Body mass index [BMI] 38.0-38.9, adult; Z79.899 Other long term (current) drug therapy
CPT/HCPCS: 36415; 71045; 80048; 80053; 80305; 81003; 83880; 84484; 85025; 93005; 93923; 99291; J1650; J1885; J1940; J2270; J3490

== ENCOUNTER 2020-01-16 17:57 | Inpatient (IN) | payer MEDICAID ==
[~2020-01-16] VITALS: Ht 180.3 cm; Wt 109.8 kg
[~2020-01-16 17:57] MED LIST changes: -AMLO5TAB88 PO; +ASPI-1160 PO; +CARV12.545 MT; -COR3 PO; +DOCU250C14 MT; -HYDR-4134 PO; +POTA20TA82 MT; -POTA20TA82 PO
[2020-01-16] MEDS ORDERED: ACETAMINOPHEN 325MG TABLET PO STA (19:29)
[2020-01-16] MEDS ORDERED: FUROSEMIDE 40MG/4ML VIAL IV ONE (19:30)
[2020-01-16 20:27] LABS: EOSINOPHILS % 2.8 % (0.0-5.0); HEMATOCRIT. 32.7 % (42.0-52.0); HEMOGLOBIN. 10.9 g/dL (14.0-18.0); LYMPHOCYTES % 16.9 % (20.0-50.0); MEAN CORPUSCULAR HEMOGLOBIN 28.5 pg (28.0-32.0); MEAN CORPUSCULAR VOLUME 85.6 fL (80.0-94.0); MEAN PLATELET VOLUME 7.4 fl (7.4-10.4); MONOCYTES % 12.3 % (2.0-8.0); PLATELET 250 x1000/uL (130-400); RED BLOOD CELL COUNT 3.82 mill/uL (4.7-6.1); RED CELL DISTRIBUTION WIDTH 17.2 % (11.6-14.6)
[2020-01-16 20:32] LABS: CHLORIDE 102 mEq/L (98-107)
[2020-01-16] MEDS ORDERED: ASPIRIN 81MG TABLET PO ONE (21:00)
[2020-01-16] MEDS ORDERED: ENOXAPARIN 100MG/ML SYR SUBCUT ONE (21:00)
[2020-01-16 21:34] LABS: *AMPHETAMINES SCREEN URINE NEGATIVE (NEGATIVE); *BARBITURATES SCREEN URINE NEGATIVE (NEGATIVE); *BENZODIAZEPINES SCREEN URINE NEGATIVE (NEGATIVE)
[2020-01-16 21:35] LABS: *COCAINE SCREEN URINE NEGATIVE (NEGATIVE); CANNABINOID URINE SCREEN NEGATIVE (NEGATIVE); METHADONE URINE SCREEN NEGATIVE (NEGATIVE); OPIATES URINE SCREEN NEGATIVE (NEGATIVE); PHENCYCLIDINE URINE SCREEN PRESUMTIVE POSITIVE (NEGATIVE)
[2020-01-16] MEDS ORDERED: ENOXAPARIN 40MG/0.4ML SYR SUBCUT SCH (21:45)
[2020-01-16] MEDS ORDERED: DEXTROSE 50% WATER 50ML SYRINGE IV PRN (21:45)
[2020-01-16] MEDS ORDERED: ONDANSETRON HCL 4MG/2ML INJ IV PRN (21:45)
[2020-01-16] MEDS ORDERED: CLONIDINE 0.1MG TABLET PO PRN (21:45)
[2020-01-16] MEDS ORDERED: GUAIFENESIN 200MG/10ML SUGAR FREE UDC PO PRN (21:45)
[2020-01-16] MEDS ORDERED: ZOLPIDEM TARTRATE 5MG TABLET PO PRN (21:45)
[2020-01-16] MEDS ORDERED: LORAZEPAM 0.5MG TABLET PO PRN (21:45)
[2020-01-16] MEDS ORDERED: DIPHENHYDRAMINE 50MG/ML VIAL IV PRN (21:45)
[2020-01-16] MEDS ORDERED: ACETAMINOPHEN 325MG TABLET PO PRN (21:45)
[2020-01-16] MEDS ORDERED: MAGNESIUM/ALUMINUM HYDROXIDE/SIMETHICONE 30ML UDC PO PRN (21:45)
[2020-01-16] MEDS ORDERED: IPRATROPIUM/ALBUTEROL 0.5-3(2.5)MG/3ML NEB HHN PRN (21:45)
[2020-01-17] VITALS (7 sets, daily range): BP systolic 117–140; BP diastolic 80–104
[2020-01-17] MEDS: HYDRALAZINE HCL 25MG TABLET PO SCH ×4 (01:40→22:01)
[2020-01-17] MEDS: SODIUM CHLORIDE 0.9% INJ 3ML FLUSH IVF SCH ×3 (05:49→22:01)
[2020-01-17] MEDS: BLOOD SUGAR DIAGNOSTIC STRIP TEST SCH ×4 (06:15→21:16)
[2020-01-17] MEDS: FUROSEMIDE 40MG/4ML VIAL IVP SCH ×2 (06:15→18:02)
[2020-01-17] MEDS: INSULIN LISPRO 100 UNITS/ML SUBCUT SCH ×4 (07:50→21:00)
[2020-01-17] MEDS: LOSARTAN POTASSIUM 50 MG TABLET PO SCH (09:04)
[2020-01-17] MEDS: AMLODIPINE 5MG TABLET PO SCH ×2 (09:04→20:48)
[2020-01-17] MEDS: CARVEDILOL 3.125 MG TABLET PO SCH ×2 (09:04→20:49)
[2020-01-17] MEDS: ENOXAPARIN 40MG/0.4ML SYR SUBCUT SCH (09:05)
[2020-01-17] MEDS: ACETAMINOPHEN 325MG TABLET PO PRN ×2 (09:06→18:02)
[2020-01-17] MEDS: ASPIRIN 81MG TABLET PO SCH (12:06)
[2020-01-17] MEDS: CLOPIDOGREL 75MG TABLET PO SCH (12:06)
[2020-01-17 16:47] LABS: CREATINE KINASE MB FRACTION 2.4 ng/mL (0.5-3.6)
[2020-01-17 16:50] LABS: T4 FREE 0.99 ng/dL (0.76-1.46)
[2020-01-18 00:15] LABS: CREATINE KINASE MB FRACTION 2.1 ng/mL (0.5-3.6)
[2020-01-18 00:43] VITALS: BP 118/85
[2020-01-18 04:00] VITALS: BP 128/91
[2020-01-18] MEDS: HYDRALAZINE HCL 25MG TABLET PO SCH ×3 (06:30→21:44)
[2020-01-18] MEDS: FUROSEMIDE 40MG/4ML VIAL IVP SCH ×2 (06:30→17:22)
[2020-01-18] MEDS: SODIUM CHLORIDE 0.9% INJ 3ML FLUSH IVF SCH ×3 (06:31→21:40)
[2020-01-18] MEDS: BLOOD SUGAR DIAGNOSTIC STRIP TEST SCH ×4 (06:31→21:39)
[2020-01-18 07:22] LABS: CREATINE KINASE MB FRACTION 1.9 ng/mL (0.5-3.6)
[2020-01-18 07:49] VITALS: BP 141/100
[2020-01-18] MEDS: INSULIN LISPRO 100 UNITS/ML SUBCUT SCH ×4 (07:50→21:00)
[2020-01-18] MEDS: AMLODIPINE 5MG TABLET PO SCH ×2 (08:50→21:40)
[2020-01-18] MEDS: CLOPIDOGREL 75MG TABLET PO SCH (08:50)
[2020-01-18] MEDS: ASPIRIN 81MG TABLET PO SCH (08:50)
[2020-01-18] MEDS: ENOXAPARIN 40MG/0.4ML SYR SUBCUT SCH (08:50)
[2020-01-18] MEDS: LOSARTAN POTASSIUM 50 MG TABLET PO SCH (08:50)
[2020-01-18] MEDS: CARVEDILOL 3.125 MG TABLET PO SCH ×2 (09:26→21:39)
[2020-01-18 11:59] VITALS: BP 145/91
[2020-01-18] MEDS ORDERED: REGADENOSON 0.4 MG/5 ML IV ONE (15:00)
[2020-01-18 16:25] VITALS: BP 137/98
[2020-01-18] MEDS: ACETAMINOPHEN 325MG TABLET PO PRN ×2 (17:22→23:30)
[2020-01-18 20:00] VITALS: BP 139/106
[2020-01-19 00:28] VITALS: BP 135/95
[2020-01-19 04:00] VITALS: BP 141/92
[2020-01-19] MEDS: HYDRALAZINE HCL 25MG TABLET PO SCH ×3 (06:00→21:25)
[2020-01-19] MEDS: FUROSEMIDE 40MG/4ML VIAL IVP SCH ×2 (06:20→17:12)
[2020-01-19] MEDS: SODIUM CHLORIDE 0.9% INJ 3ML FLUSH IVF SCH ×3 (06:20→21:24)
[2020-01-19] MEDS: BLOOD SUGAR DIAGNOSTIC STRIP TEST SCH ×4 (06:21→21:25)
[2020-01-19] MEDS: INSULIN LISPRO 100 UNITS/ML SUBCUT SCH ×4 (07:46→21:00)
[2020-01-19 08:30] VITALS: BP 124/90
[2020-01-19] MEDS: CLOPIDOGREL 75MG TABLET PO SCH (09:06)
[2020-01-19] MEDS: AMLODIPINE 5MG TABLET PO SCH ×2 (09:06→21:24)
[2020-01-19] MEDS: ASPIRIN 81MG TABLET PO SCH (09:06)
[2020-01-19] MEDS: ENOXAPARIN 40MG/0.4ML SYR SUBCUT SCH (09:07)
[2020-01-19] MEDS: CARVEDILOL 3.125 MG TABLET PO SCH ×2 (09:10→21:24)
[2020-01-19] MEDS: LOSARTAN POTASSIUM 50 MG TABLET PO SCH (09:10)
[2020-01-19 11:20] LABS: BASOPHILS % 0.9 % (0.0-2.0); EOSINOPHILS % 1.9 % (0.0-5.0); HEMATOCRIT. 34.8 % (42.0-52.0); HEMOGLOBIN. 11.5 g/dL (14.0-18.0); LYMPHOCYTES % 19.1 % (20.0-50.0); MEAN CORPUSCULAR HEMOGLOBIN 28.4 pg (28.0-32.0); MEAN CORPUSCULAR VOLUME 86.5 fL (80.0-94.0); MEAN PLATELET VOLUME 7.3 fl (7.4-10.4); MONOCYTES % 11.2 % (2.0-8.0); NEUTROPHILS % 66.9 % (40.0-76.0); PLATELET 271 x1000/uL (130-400); RED BLOOD CELL COUNT 4.03 mill/uL (4.7-6.1); RED CELL DISTRIBUTION WIDTH 17.2 % (11.6-14.6)
[2020-01-19 11:43] LABS: CHLORIDE 101 mEq/L (98-107)
[2020-01-19 12:00] VITALS: BP 130/96
[2020-01-19] MEDS ORDERED: POTASSIUM CHLORIDE 20MEQ TABLET SR PO NR (14:30)
[2020-01-19] MEDS ORDERED: METOLAZONE 5MG TABLET PO NR (15:00)
[2020-01-19] MEDS: ACETAMINOPHEN 325MG TABLET PO PRN (15:23)
[2020-01-19 16:00] VITALS: BP 120/90
[2020-01-19 20:30] VITALS: BP 123/92
[2020-01-19] MEDS: ENOXAPARIN 30MG/0.3ML SYR SUBCUT SCH (21:24)
[2020-01-20] VITALS: BP 110/76
[2020-01-20 04:00] VITALS: BP 116/84
[2020-01-20] MEDS: HYDRALAZINE HCL 25MG TABLET PO SCH ×3 (06:10→21:09)
[2020-01-20] MEDS: SODIUM CHLORIDE 0.9% INJ 3ML FLUSH IVF SCH ×3 (06:10→21:09)
[2020-01-20] MEDS: FUROSEMIDE 40MG/4ML VIAL IVP SCH ×2 (06:22→17:43)
[2020-01-20] MEDS: BLOOD SUGAR DIAGNOSTIC STRIP TEST SCH ×4 (06:22→21:09)
[2020-01-20] MEDS: INSULIN LISPRO 100 UNITS/ML SUBCUT SCH ×4 (07:21→21:00)
[2020-01-20 08:00] VITALS: BP 117/77
[2020-01-20] MEDS: CLOPIDOGREL 75MG TABLET PO SCH (08:57)
[2020-01-20] MEDS: ASPIRIN 81MG TABLET PO SCH (08:57)
[2020-01-20] MEDS: ENOXAPARIN 30MG/0.3ML SYR SUBCUT SCH ×2 (08:57→21:09)
[2020-01-20] MEDS: LOSARTAN POTASSIUM 50 MG TABLET PO SCH (08:57)
[2020-01-20] MEDS: CARVEDILOL 3.125 MG TABLET PO SCH ×2 (08:58→21:07)
[2020-01-20] MEDS: AMLODIPINE 5MG TABLET PO SCH ×2 (08:58→21:07)
[2020-01-20 12:00] VITALS: BP 112/88
[2020-01-20] MEDS: ACETAMINOPHEN 325MG TABLET PO PRN (15:19)
[2020-01-20 16:00] VITALS: BP 116/77
[2020-01-20 20:00] VITALS: BP 122/79
[2020-01-21 00:16] VITALS: BP 116/80
[2020-01-21] MEDS: ACETAMINOPHEN 325MG TABLET PO PRN ×2 (00:55→08:41)
[2020-01-21 04:00] VITALS: BP 117/70
[2020-01-21] MEDS: HYDRALAZINE HCL 25MG TABLET PO SCH (06:02)
[2020-01-21] MEDS: SODIUM CHLORIDE 0.9% INJ 3ML FLUSH IVF SCH (06:02)
[2020-01-21] MEDS: BLOOD SUGAR DIAGNOSTIC STRIP TEST SCH (06:22)
[2020-01-21] MEDS: FUROSEMIDE 40MG/4ML VIAL IVP SCH (06:22)
[2020-01-21] MEDS: INSULIN LISPRO 100 UNITS/ML SUBCUT SCH (07:28)
[2020-01-21 08:28] VITALS: BP 104/69
[2020-01-21] MEDS: ASPIRIN 81MG TABLET PO SCH (08:40)
[2020-01-21] MEDS: ENOXAPARIN 30MG/0.3ML SYR SUBCUT SCH (08:41)
[2020-01-21] MEDS: CLOPIDOGREL 75MG TABLET PO SCH (08:41)
[2020-01-21] MEDS: AMLODIPINE 5MG TABLET PO SCH (08:45)
[2020-01-21] MEDS: CARVEDILOL 3.125 MG TABLET PO SCH (08:45)
[2020-01-21] MEDS: LOSARTAN POTASSIUM 50 MG TABLET PO SCH (08:45)
== END 2020-01-21 11:22 | disposition home or self-care (01) | DRG 194 ==
LOC: ER 17:57 → 6WST 21:53 → EDBEDREQTM 21:55 → EDBEDREQ 21:55 → ENRESERV 22:30
PROVIDERS: ADMIT Internal Medicine; ATTEND Internal Medicine
DX: I11.0 Hypertensive heart disease with heart failure (principal); I21.4 Non-ST elevation (NSTEMI) myocardial infarction; I50.23 Acute on chronic systolic (congestive) heart failure; E43 Unspecified severe protein-calorie malnutrition; L97.919 Non-pressure chronic ulcer of unspecified part of right lower leg with unspecified severity; L97.929 Non-pressure chronic ulcer of unspecified part of left lower leg with unspecified severity; M79.89 Other specified soft tissue disorders; I87.8 Other specified disorders of veins; I42.9 Cardiomyopathy, unspecified; F17.210 Nicotine dependence, cigarettes, uncomplicated; E11.51 Type 2 diabetes mellitus with diabetic peripheral angiopathy without gangrene; E66.9 Obesity, unspecified; D64.9 Anemia, unspecified; Z59.0 Homelessness; Z79.82 Long term (current) use of aspirin; Z79.84 Long term (current) use of oral hypoglycemic drugs; Z79.899 Other long term (current) drug therapy; Z68.33 Body mass index [BMI] 33.0-33.9, adult; Z91.14 Patient's other noncompliance with medication regimen; Z91.19 Patient's noncompliance with other medical treatment and regimen
CPT/HCPCS: 36415; 71045; 80048; 80053; 80061; 80305; 82550; 82553; 82962; 83036; 83735; 83880; 84439; 84443; 84484; 85025; 85379; 93005; 93306; 99291; J1650; J1940

== ENCOUNTER 2020-02-10 11:39 | Emergency (ER) | payer MEDICAID ==
[~2020-02-10] VITALS: Ht 172.7 cm; Wt 95.0 kg
[~2020-02-10 11:39] MED LIST changes: -ASPI-1160 PO; -CARV12.545 MT; -DOCU250C14 MT; -FERR325T6 MT; -FURO40TA5 MT; -LOSA50TA3 PO; -POTA20TA82 MT
[2020-02-10 11:47] VITALS: BP 139/90
== END 2020-02-10 18:58 | disposition left against medical advice (07) ==
LOC: ER 11:44
DX: M79.604 Pain in right leg (principal); E11.9 Type 2 diabetes mellitus without complications; F16.10 Hallucinogen abuse, uncomplicated

== ENCOUNTER 2020-05-01 18:58 | Emergency (ER) | payer MEDICAID ==
[~2020-05-01] VITALS: Ht 175.3 cm; Wt 90.0 kg
[~2020-05-01 18:58] MED LIST changes: +AMLO5TAB88 PO; +ASPI-1158 PO; +FURO40TA5 MT; +LISI2.5T47 PO; +POTA20TA82 PO; +SILV20CR13 TOP; +TC025U80 TOP
[2020-05-01] MEDS ORDERED: FUROSEMIDE 40MG TABLET PO ONE (23:15)
[2020-05-01] MEDS ORDERED: ACETAMINOPHEN 500MG TABLET PO ONE (23:30)
[2020-05-02 00:10] VITALS: BP 133/90
== END 2020-05-02 00:11 | disposition home or self-care (01) ==
LOC: ER 18:58
DX: I50.9 Heart failure, unspecified (principal); Z91.14 Patient's other noncompliance with medication regimen; Z59.0 Homelessness; Z79.899 Other long term (current) drug therapy
CPT/HCPCS: 99283

== ENCOUNTER 2020-07-06 12:20 | Inpatient (IN) | payer MEDICAID ==
[~2020-07-06] VITALS: Ht 180.3 cm; Wt 79.2 kg
[~2020-07-06 12:20] MED LIST changes: -ASPI-1158 PO; +ASPI-1406 PO
[2020-07-06] MEDS ORDERED: PIPERACILLIN/TAZ 3.375G PREMIX 50 ML IV ONE (13:00)
[2020-07-06] MEDS ORDERED: VANCOMYCIN 1 G PREMIX 200 ML IV ONE (13:00)
[2020-07-06 13:08] LABS: BASOPHILS % 1.1 % (0.0-2.0); EOSINOPHILS % 2.7 % (0.0-5.0); HEMATOCRIT. 33.9 % (42.0-52.0); HEMOGLOBIN. 10.8 g/dL (14.0-18.0); LYMPHOCYTES % 17.9 % (20.0-50.0); MEAN CORPUSCULAR HEMOGLOBIN 27.2 pg (28.0-32.0); MEAN CORPUSCULAR VOLUME 85.2 fL (80.0-94.0); MEAN PLATELET VOLUME 7.1 fl (7.4-10.4); MONOCYTES % 12.5 % (2.0-8.0); NEUTROPHILS % 65.8 % (40.0-76.0); PLATELET 240 x1000/uL (130-400); RED BLOOD CELL COUNT 3.98 mill/uL (4.7-6.1); RED CELL DISTRIBUTION WIDTH 17.2 % (11.6-14.6)
[2020-07-06 13:16] LABS: CHLORIDE 109 mEq/L (98-107)
[2020-07-06] MEDS ORDERED: ASPIRIN 325MG EC TABLET PO ONE (14:00)
[2020-07-06 15:22] LABS: INR 1.2; PROTHROMBIN TIME 12.6 sec (9.6-11.0)
[2020-07-06] MEDS ORDERED: CLONIDINE 0.1MG TABLET PO PRN (16:15)
[2020-07-06] MEDS ORDERED: IPRATROPIUM/ALBUTEROL 0.5-3(2.5)MG/3ML NEB HHN PRN (16:15)
[2020-07-06] MEDS ORDERED: LORAZEPAM 0.5MG TABLET PO PRN (16:15)
[2020-07-06] MEDS ORDERED: ONDANSETRON HCL 4MG/2ML INJ IV PRN (16:15)
[2020-07-06] MEDS ORDERED: DOCUSATE SODIUM 100MG CAPSULE PO PRN (16:15)
[2020-07-06] MEDS ORDERED: ACETAMINOPHEN 325MG TABLET PO PRN ×2 (16:15)
[2020-07-06] MEDS ORDERED: HYDROCODONE/ACETAMINOPHEN 5/325MG TABLET PO PRN (16:15)
[2020-07-06] MEDS: POTASSIUM CHLORIDE 20MEQ TABLET SR PO SCH ×2 (17:25→20:33)
[2020-07-06] MEDS: FUROSEMIDE 100MG/10ML VIAL IVP SCH ×2 (17:25→20:33)
[2020-07-06] MEDS: PIPERACILLIN/TAZ 3.375G PREMIX 50 ML IV SCH (20:33)
[2020-07-06 23:00] VITALS: BP 140/105
[2020-07-07] VITALS: BP 140/105
[2020-07-07] MEDS ORDERED: VANCOMYCIN 1 G PREMIX 200 ML IV SCH
[2020-07-07] MEDS: CARVEDILOL 6.25 MG TABLET PO SCH ×2 (00:14→09:38)
[2020-07-07] MEDS: PIPERACILLIN/TAZ 3.375G PREMIX 50 ML IV SCH (03:43)
[2020-07-07 03:48] LABS: *BENZODIAZEPINES SCREEN URINE NEGATIVE (NEGATIVE); *COCAINE SCREEN URINE NEGATIVE (NEGATIVE); METHADONE URINE SCREEN NEGATIVE (NEGATIVE); OPIATES URINE SCREEN NEGATIVE (NEGATIVE); PHENCYCLIDINE URINE SCREEN PRESUMTIVE POSITIVE (NEGATIVE)
[2020-07-07 03:49] LABS: *AMPHETAMINES SCREEN URINE NEGATIVE (NEGATIVE); *BARBITURATES SCREEN URINE NEGATIVE (NEGATIVE); CANNABINOID URINE SCREEN NEGATIVE (NEGATIVE)
[2020-07-07 04:00] VITALS: BP 112/88
[2020-07-07 07:24] LABS: EOSINOPHILS % 5.2 % (0.0-5.0); HEMATOCRIT. 35.2 % (42.0-52.0); LYMPHOCYTES % 19.9 % (20.0-50.0); MEAN CORPUSCULAR HEMOGLOBIN 27.4 pg (28.0-32.0); MEAN CORPUSCULAR VOLUME 87.4 fL (80.0-94.0); MEAN PLATELET VOLUME 7.6 fl (7.4-10.4); MONOCYTES % 14.8 % (2.0-8.0); NEUTROPHILS % 59.1 % (40.0-76.0); PLATELET 218 x1000/uL (130-400); RED BLOOD CELL COUNT 4.03 mill/uL (4.7-6.1); RED CELL DISTRIBUTION WIDTH 17.7 % (11.6-14.6)
[2020-07-07 07:38] LABS: CHLORIDE 108 mEq/L (98-107)
[2020-07-07 08:00] VITALS: BP 133/97
[2020-07-07] MEDS: LISINOPRIL 2.5MG TABLET PO SCH (09:38)
[2020-07-07] MEDS: ASPIRIN 81MG EC TABLET PO SCH (09:38)
[2020-07-07] MEDS: PIPERACILLIN/TAZOBACTAM 3.375 G in DEXT 5% WATER 100 ML IV SCH ×3 (09:41→18:09)
[2020-07-07 12:00] VITALS: BP 141/98
[2020-07-07 16:00] VITALS: BP 127/97
[2020-07-07] MEDS ORDERED: DEXTROSE 50% WATER 50ML SYRINGE IV PRN (16:15)
[2020-07-07] MEDS: INSULIN LISPRO 100 UNITS/ML SUBCUT SCH ×2 (16:39→21:00)
[2020-07-07] MEDS: BLOOD SUGAR DIAGNOSTIC STRIP TEST SCH ×2 (16:39→21:08)
[2020-07-07] MEDS ORDERED: VANCOMYCIN 1500MG in DEXTROSE 5% WATER 250ML IV SCH (18:00)
[2020-07-07] MEDS: POTASSIUM CHLORIDE 20MEQ TABLET SR PO SCH (18:07)
[2020-07-07] MEDS: ENOXAPARIN 40MG/0.4ML SYR SUBCUT SCH (18:07)
[2020-07-07] MEDS: FUROSEMIDE 100MG/10ML VIAL IVP SCH (18:07)
[2020-07-07 20:00] VITALS: BP 147/113
[2020-07-07] MEDS: CARVEDILOL 12.5MG TABLET PO SCH (20:54)
[2020-07-08] VITALS: BP 144/102
[2020-07-08] MEDS: PIPERACILLIN/TAZOBACTAM 3.375 G in DEXT 5% WATER 100 ML IV SCH ×4 (01:25→18:14)
[2020-07-08 04:00] VITALS: BP 113/80
[2020-07-08] MEDS: INSULIN LISPRO 100 UNITS/ML SUBCUT SCH ×4 (06:16→21:00)
[2020-07-08] MEDS: FUROSEMIDE 100MG/10ML VIAL IVP SCH (06:23)
[2020-07-08] MEDS: BLOOD SUGAR DIAGNOSTIC STRIP TEST SCH ×4 (06:45→21:00)
[2020-07-08 07:42] LABS: EOSINOPHILS % 5.9 % (0.0-5.0); HEMATOCRIT. 34.4 % (42.0-52.0); HEMOGLOBIN. 10.8 g/dL (14.0-18.0); LYMPHOCYTES % 11.6 % (20.0-50.0); MEAN CORPUSCULAR HEMOGLOBIN 27.6 pg (28.0-32.0); MEAN PLATELET VOLUME 7.6 fl (7.4-10.4); MONOCYTES % 10.9 % (2.0-8.0); NEUTROPHILS % 70.6 % (40.0-76.0); PLATELET 219 x1000/uL (130-400); RED CELL DISTRIBUTION WIDTH 17.5 % (11.6-14.6)
[2020-07-08 07:52] LABS: CHLORIDE 104 mEq/L (98-107)
[2020-07-08 08:00] VITALS: BP 108/77
[2020-07-08] MEDS: LISINOPRIL 2.5MG TABLET PO SCH (08:39)
[2020-07-08] MEDS: CARVEDILOL 12.5MG TABLET PO SCH ×2 (08:39→21:46)
[2020-07-08] MEDS: ASPIRIN 81MG EC TABLET PO SCH (09:03)
[2020-07-08] MEDS: POTASSIUM CHLORIDE 20MEQ TABLET SR PO SCH ×2 (09:04→17:17)
[2020-07-08 12:00] VITALS: BP 124/75
[2020-07-08 16:00] VITALS: BP 126/85
[2020-07-08] MEDS: ENOXAPARIN 40MG/0.4ML SYR SUBCUT SCH (17:17)
[2020-07-08 20:00] VITALS: BP 154/90
[2020-07-09] VITALS: BP 133/103
[2020-07-09] MEDS: PIPERACILLIN/TAZOBACTAM 3.375 G in DEXT 5% WATER 100 ML IV SCH ×3 (00:35→11:55)
[2020-07-09 04:00] VITALS: BP 142/89
[2020-07-09] MEDS: BLOOD SUGAR DIAGNOSTIC STRIP TEST SCH ×2 (06:44→11:54)
[2020-07-09] MEDS: INSULIN LISPRO 100 UNITS/ML SUBCUT SCH ×2 (07:15→12:01)
[2020-07-09 08:00] VITALS: BP 132/85
[2020-07-09] MEDS: LISINOPRIL 2.5MG TABLET PO SCH (08:52)
[2020-07-09] MEDS: CARVEDILOL 12.5MG TABLET PO SCH (08:53)
[2020-07-09] MEDS: ASPIRIN 81MG EC TABLET PO SCH (08:53)
[2020-07-09] MEDS: POTASSIUM CHLORIDE 20MEQ TABLET SR PO SCH (08:54)
[2020-07-09 09:50] LABS: BASOPHILS % 1.1 % (0.0-2.0); EOSINOPHILS % 4.8 % (0.0-5.0); HEMATOCRIT. 33.2 % (42.0-52.0); HEMOGLOBIN. 10.7 g/dL (14.0-18.0); LYMPHOCYTES % 14.4 % (20.0-50.0); MEAN CORPUSCULAR HEMOGLOBIN 27.7 pg (28.0-32.0); MEAN CORPUSCULAR VOLUME 85.5 fL (80.0-94.0); MEAN PLATELET VOLUME 7.6 fl (7.4-10.4); MONOCYTES % 10.7 % (2.0-8.0); PLATELET 214 x1000/uL (130-400); RED BLOOD CELL COUNT 3.88 mill/uL (4.7-6.1)
[2020-07-09 10:14] LABS: CHLORIDE 102 mEq/L (98-107)
== END 2020-07-09 12:30 | disposition left against medical advice (07) | DRG 720 ==
LOC: ER 12:20 → 5WST 14:26 → EDBEDREQ 14:31 → ENRESERV 20:30
PROVIDERS: ADMIT Internal Medicine; ATTEND Internal Medicine
DX: A41.9 Sepsis, unspecified organism (principal); L97.919 Non-pressure chronic ulcer of unspecified part of right lower leg with unspecified severity; I21.4 Non-ST elevation (NSTEMI) myocardial infarction; I50.23 Acute on chronic systolic (congestive) heart failure; I89.0 Lymphedema, not elsewhere classified; E11.9 Type 2 diabetes mellitus without complications; F14.90 Cocaine use, unspecified, uncomplicated; F16.90 Hallucinogen use, unspecified, uncomplicated; F17.210 Nicotine dependence, cigarettes, uncomplicated; I25.10 Atherosclerotic heart disease of native coronary artery without angina pectoris; I25.5 Ischemic cardiomyopathy; I27.20 Pulmonary hypertension, unspecified; I34.0 Nonrheumatic mitral (valve) insufficiency; I42.0 Dilated cardiomyopathy; J44.9 Chronic obstructive pulmonary disease, unspecified; L30.9 Dermatitis, unspecified; R09.02 Hypoxemia; I45.10 Unspecified right bundle-branch block; I36.1 Nonrheumatic tricuspid (valve) insufficiency; Z53.29 Procedure and treatment not carried out because of patient's decision for other reasons; Z59.0 Homelessness; I25.2 Old myocardial infarction; Z79.82 Long term (current) use of aspirin; Z79.899 Other long term (current) drug therapy; Z79.84 Long term (current) use of oral hypoglycemic drugs; Z91.19 Patient's noncompliance with other medical treatment and regimen; L03.116 Cellulitis of left lower limb; L03.115 Cellulitis of right lower limb
CPT/HCPCS: 36415; 71045; 80048; 80053; 80305; 82962; 83036; 83880; 84484; 85025; 93005; 93306; 93970; 99291; J1650; J1940; J2405; J2543; J3370; J7060

== ENCOUNTER 2020-07-14 14:01 | Emergency (ER) | payer MEDICAID ==
[~2020-07-14] VITALS: Ht 182.9 cm; Wt 105.0 kg
[2020-07-14 15:42] LABS: BASOPHILS % 1.3 % (0.0-2.0); EOSINOPHILS % 2.8 % (0.0-5.0); HEMATOCRIT. 33.8 % (42.0-52.0); HEMOGLOBIN. 11.2 g/dL (14.0-18.0); LYMPHOCYTES % 14.2 % (20.0-50.0); MEAN CORPUSCULAR HEMOGLOBIN 28.1 pg (28.0-32.0); MEAN PLATELET VOLUME 7.5 fl (7.4-10.4); MONOCYTES % 11.7 % (2.0-8.0); PLATELET 199 x1000/uL (130-400); RED BLOOD CELL COUNT 3.97 mill/uL (4.7-6.1); RED CELL DISTRIBUTION WIDTH 17.3 % (11.6-14.6)
[2020-07-14 16:04] LABS: CHLORIDE 104 mEq/L (98-107)
[2020-07-14 16:07] LABS: ETHANOL BLOOD < 10 mg/dL
[2020-07-14 16:35] LABS: *AMPHETAMINES SCREEN URINE NEGATIVE (NEGATIVE); CANNABINOID URINE SCREEN PRESUMTIVE POSITIVE (NEGATIVE)
[2020-07-14 16:36] LABS: *BARBITURATES SCREEN URINE NEGATIVE (NEGATIVE); *BENZODIAZEPINES SCREEN URINE NEGATIVE (NEGATIVE); *COCAINE SCREEN URINE NEGATIVE (NEGATIVE); METHADONE URINE SCREEN NEGATIVE (NEGATIVE); OPIATES URINE SCREEN NEGATIVE (NEGATIVE)
[2020-07-14 16:37] LABS: PHENCYCLIDINE URINE SCREEN PRESUMTIVE POSITIVE (NEGATIVE)
[2020-07-14 18:30] VITALS: BP 148/101
[2020-07-14] MEDS ORDERED: ASPI-867 MT (18:54)
== END 2020-07-14 19:38 | disposition home or self-care (01) ==
LOC: ER 14:01
DX: E11.621 Type 2 diabetes mellitus with foot ulcer (principal); I87.8 Other specified disorders of veins; I50.9 Heart failure, unspecified; Z79.82 Long term (current) use of aspirin
CPT/HCPCS: 36415; 71045; 80053; 80305; 80320; 83880; 84484; 85025; 93005; 93971; 99285; Z7610; G0480

== ENCOUNTER 2020-07-21 10:48 | Emergency (ER) | payer MEDICAID ==
[~2020-07-21] VITALS: Ht 177.8 cm; Wt 89.0 kg
[~2020-07-21 10:48] MED LIST changes: +ASPI-867 MT
[2020-07-21] MEDS ORDERED: IBUPROFEN 800MG TABLET PO ONE (11:30)
[2020-07-21] MEDS ORDERED: CEPH500C2 MT (12:23)
[2020-07-21] MEDS ORDERED: ACET-2708 MT (12:23)
[2020-07-21] MEDS ORDERED: CEPHALEXIN 250MG CAPSULE PO ONE (12:30)
[2020-07-21 13:02] VITALS: BP 136/95
== END 2020-07-21 13:03 | disposition home or self-care (01) ==
LOC: ER 10:48
DX: R22.31 Localized swelling, mass and lump, right upper limb (principal); E11.9 Type 2 diabetes mellitus without complications; I50.9 Heart failure, unspecified; Z79.84 Long term (current) use of oral hypoglycemic drugs; Z79.82 Long term (current) use of aspirin; Y08.02XA Assault by strike by baseball bat, initial encounter; Y93.89 Activity, other specified; Y92.89 Other specified places as the place of occurrence of the external cause
CPT/HCPCS: 73130; 99283

== ENCOUNTER 2020-08-06 09:17 | Emergency (ER) | payer MEDICAID ==
[~2020-08-06] VITALS: Ht 180.3 cm; Wt 113.0 kg
[~2020-08-06 09:17] MED LIST changes: +ACET-2708 MT; +CEPH500C2 MT
[2020-08-06] MEDS ORDERED: ACETAMINOPHEN 325MG TABLET PO ONE (11:30)
[2020-08-06 12:44] VITALS: BP 159/109
[2020-08-06 13:20] LABS: EOSINOPHILS % 4.3 % (0.0-5.0); HEMATOCRIT. 35.9 % (42.0-52.0); HEMOGLOBIN. 11.3 g/dL (14.0-18.0); LYMPHOCYTES % 14.1 % (20.0-50.0); MEAN CORPUSCULAR HEMOGLOBIN 27.1 pg (28.0-32.0); MEAN CORPUSCULAR VOLUME 86.4 fL (80.0-94.0); MEAN PLATELET VOLUME 7.6 fl (7.4-10.4); MONOCYTES % 12.3 % (2.0-8.0); NEUTROPHILS % 68.3 % (40.0-76.0); PLATELET 242 x1000/uL (130-400); RED BLOOD CELL COUNT 4.16 mill/uL (4.7-6.1); RED CELL DISTRIBUTION WIDTH 17.1 % (11.6-14.6)
[2020-08-06 13:35] LABS: CHLORIDE 110 mEq/L (98-107)
[2020-08-06] MEDS ORDERED: CEPH500C2 MT (13:50)
[2020-08-06] MEDS ORDERED: SULF1TAB48 MT (13:53)
[2020-08-06] MEDS ORDERED: CEPHALEXIN 250MG CAPSULE PO ONE (14:00)
[2020-08-06] MEDS ORDERED: SULFAMETHOXAZOLE/TRIMETHOPRIM 800/160MG TABLET PO ONE (14:00)
== END 2020-08-06 18:23 | disposition home or self-care (01) ==
LOC: ER 09:17
DX: L03.115 Cellulitis of right lower limb (principal); I50.9 Heart failure, unspecified; E11.9 Type 2 diabetes mellitus without complications; Z79.82 Long term (current) use of aspirin; Z79.899 Other long term (current) drug therapy
CPT/HCPCS: 36415; 73130; 73590; 80053; 85025; 99284

== ENCOUNTER 2021-02-02 13:38 | Emergency (ER) | payer MEDICAID ==
[~2021-02-02] VITALS: Ht 182.9 cm; Wt 100.0 kg
[~2021-02-02 13:38] MED LIST changes: -ACET-2708 MT; -AMLO5TAB88 PO; -ASPI-867 MT; -CEPH500C2 MT; +COR6 PO; +DOCU-150 PO; +FERR325T23 PO; -FURO40TA5 MT; +FURO40TA5 PO; -LISI2.5T47 PO; +LOSA25TA3 PO; -SILV20CR13 TOP; +SPIR25TA PO; +SULF1TAB48 MT; -TC025U80 TOP
[2021-02-02 13:52] VITALS: BP 111/74
[2021-02-02] MEDS ORDERED: SULFAMETHOXAZOLE/TRIMETHOPRIM 800/160MG TABLET PO ONE (14:45)
[2021-02-02] MEDS ORDERED: CEPHALEXIN 250MG CAPSULE PO ONE (14:45)
[2021-02-02] MEDS ORDERED: FUROSEMIDE 40MG TABLET PO ONE (14:45)
[2021-02-02 16:08] LABS: BASOPHILS % 0.8 % (0.0-2.0); HEMATOCRIT. 34.9 % (42.0-52.0); HEMOGLOBIN. 10.8 g/dL (14.0-18.0); LYMPHOCYTES % 19.8 % (20.0-50.0); MEAN CORPUSCULAR HEMOGLOBIN 24.1 pg (28.0-32.0); MEAN CORPUSCULAR VOLUME 77.8 fL (80.0-94.0); MEAN PLATELET VOLUME 7.1 fl (7.4-10.4); MONOCYTES % 9.6 % (2.0-8.0); NEUTROPHILS % 67.8 % (40.0-76.0); PLATELET 251 x1000/uL (130-400); RED BLOOD CELL COUNT 4.49 mill/uL (4.7-6.1); RED CELL DISTRIBUTION WIDTH 25.7 % (11.6-14.6)
[2021-02-02 16:16] LABS: CHLORIDE 105 mEq/L (98-107)
[2021-02-02] MEDS ORDERED: POTASSIUM CHLORIDE 20MEQ TABLET SR PO SCH (16:30)
[2021-02-02 16:37] LABS: PLATELET ESTIMATE NORMAL
[2021-02-02] MEDS ORDERED: FURO-151 MT (17:18)
[2021-02-02] MEDS ORDERED: POTA20TA82 MT (17:19)
[2021-02-02] MEDS ORDERED: CLIN300C12 MT (17:20)
== END 2021-02-02 17:45 | disposition home or self-care (01) ==
LOC: ER 13:38
DX: R60.0 Localized edema (principal); L03.115 Cellulitis of right lower limb; E11.9 Type 2 diabetes mellitus without complications; Z79.84 Long term (current) use of oral hypoglycemic drugs; Z79.82 Long term (current) use of aspirin
CPT/HCPCS: 36415; 80053; 82962; 85025; 99284